=== PATIENT | female | born 1985 | race Caucasian/White ===

== ENCOUNTER 2018-06-06 10:48 | Outpatient (REF) | payer BC, SELFPAY ==
--- NOTE | 2018-06-06 10:30 | PAPFT_PTH ---
PATIENT: Jeana Thornton LOC: [facility]#:[id number] AGE/SX: 32/F ROOM: RE06/06/[address]: Sherry Victoria : 1985 BED: DIS: 06/06/2018 SPEC #: [id number] RECD: 06/06/18 13:06 STATUS: MARRY REVee #: [id number] PERRY: 06/06/18 10:[address]: Sherry Victoria DEPT: [facility] Cytology RECD BY: Jane Terrazas Tissues: 1 - CX/ENDOCX FOR PAP SMEARS Procedures: PAP THIN PREP/UVM Screening HPV DNA PROBE Comments: [id number]
== END 2018-06-06 11:08 ==
LOC: NCHCN 10:48
PROVIDERS: PCP Nurse Practitioner; Visit Provider Nurse Practitioner
DX: Z00.00 Encounter for general adult medical examination without abnormal findings (principal); Z12.4 Encounter for screening for malignant neoplasm of cervix; Z11.51 Encounter for screening for human papillomavirus (HPV)
CPT/HCPCS: 88142; 87624

== ENCOUNTER 2019-02-09 09:53 | Emergency (ER) | payer BC, SELFPAY ==
[2019-02-09 09:56] VITALS: BP 132/93; PULSE 87; RESP 14; TEMP 36.7; O2SAT 97
[2019-02-09 09:58] VITALS: RESP 14
[2019-02-09] MEDS: Meclizine 25 MG TAB PO (10:08)
--- NOTE | 2019-02-09 10:15 | W.ED.GENAD ---
Discharge Plan Disposition Patient Disposition: HOME Condition: Good Discharge Details Chief Complaint: Dizzy/Sync Clinical Impression: Vertigo Primary Care Provider: Sherry Victoria ED Provider: Jhonny Morgan Home Meds and New Rx's Prescriptions: New meclizine 25 mg tablet 25 mg PO TID Qty: 30 RF: 0 No Action ParaGard T 380A 1 EACH intrauterine device 1 ea Intrauterine ONCE Qty: 1 RF: 0 Discharge Instructions Instructions: Vertigo (ED) Additional Instructions: You have what I suspect to be vertigo causing her dizziness. Please decrease your caffeine and salt intake. Please drink 10 to 12 cups of water per day. Please take the meclizine as directed for treatment of your symptoms. If you notice any worsening of your symptoms, or any new symptoms such as vomiting, diarrhea, fever, chills, shortness of breath, chest pain, numbness, weakness, or fainting , please return immediately to the emergency department for reevaluation. Please follow up with your primary care provider as soon as possible for reassessment and reevaluation. As always, it was a pleasure participating in your medical care today. Stand Alone Forms: Work Release Referrals: Sherry Victoria [Primary Care Provider] - Medical Decision Making This is a very pleasant 33-year-old female who presents with symptoms of dizziness. It started this morning when she turned over and stood up she got up in the morning. She denies having any fall, she did not hit her head, she denies any other complaints. Nausea is present but no vomiting. Exam demonstrates no neurologic deficits. Mild left-sided horizontal nystagmus with a fatiguing beat. No vertical or rotatory nystagmus. Hints exam showed no evidence of cerebellar component. Signs and symptoms at this time appear clinically consistent with peripheral vertigo. No concerning exam red flags that are clinically consistent with central cerebellar event, or stroke. Patient will be started on meclizine, recommended that she decrease her caffeine and salt intake, and follow closely. Clinically she does look well and is able to ambulate without difficulty. I have extensively reviewed the treatment plan and discharge instructions with the patient. I have addressed all patient concerns at this time. The patient was made aware of what symptoms to monitor for that would warrant a return to the emergency department. Discussed the plan with the patient, they demonstrate verbal understanding and agreement with our assessment and plan at this time. HPI General Date/Time Provider Initiated Documentation: 02/09/19 09:55. HPI Narrative: This is a 33-year-old female with no significant past medical history except for a copper intrauterine device who presents today for evaluation of dizziness. The patient states that this morning she woke up in the morning, turned and stood up, and then felt notably dizzy. She had a room spinning sensation. She then went laid on the floor. She did not fall or hit her head. She laid on the floor for an hour to as the symptoms slowly resolved. She admits to nausea but no vomiting. She denies any severe headache, chest pain, shortness of breath, numbness tingling or weakness. She denies any tinnitus, or other vision changes. She denies any history of stroke. She has no other complaints at this time. No other modifying factors. Related Data Home Medications Medication Instructions Recorded Confirmed copper [Paragard T 380-A] 1 ea INTRAUTERINE ONCE #1 implant 09/17/16 02/09/19 meclizine 25 mg PO TID #30 tab 02/09/19 Previous Rx's Medication Instructions Recorded meclizine 25 mg PO TID #30 tab 02/09/19 Allergies Allergy/AdvReac Type Severity Reaction Status Date / Time No Known Allergies Allergy Unverified 02/09/19 10:00 General Stated Complaint: Dizzy/Sync NOHEMY: 3 Review of Systems Review of Systems All systems reviewed & are unremarkable except as noted in HPI and below PFSH Medical History Contraceptive management Ovarian cyst in Surgical History section (09/14/14) Family History Mother Essential hypertension Hyperlipidemia Mental disorder Father Hyperlipidemia Sister Alcohol abuse Essential hypertension Mental disorder Brother Substance abuse Social History Smoking/Tobacco Use Status: Former Tobacco Use Alcohol Intake: never Drug use: Never Substance use type: does not use Do you feel safe at home: Yes Do you feel safe in your relationship?: Yes Exam Narrative Exam Narrative: 1.Const: Well-nourished, Well-developed, appearing stated age 2.Eyes: PERRL, no conjunctival injection, and symmetrical lids. Cerebellar function testing is normal. The patient demonstrates a normal hints exam with no findings concerning for a central event. No vertical nystagmus. She does have notable left-sided horizontal nystagmus. The head impulse test is negative for any significant central abnormality. Normal test of skew with a subtle horizontal correction but no vertical correction. No suggestion of a central cerebellar event. 3.ENT: Atraumatic external nose and ears. Moist MM. Neck: Symmetric, trachea midline, No thyromegaly. 4.CVS: +S1/S2, No murmurs or gallops. Peripheral pulses 2+ and equal in all extremities. Brisk capillary refill in all extremities. 5.RESP: Unlabored respiratory effort. Clear to auscultation bilaterally. No wheezes rales or rhonchi 6.GI: Soft, Nontender/Nondistended, No hepatosplenomegaly. No guarding or rebound. 7.MSK: Normocephalic/Atraumatic, Extremities w/o deformity or ttp No cyanosis or clubbing, Normal movement of all extremities 8.Skin: Warm, Dry. No rashes or lesions. 9.Neuro: soft work wrapper examiner II-XII grossly intact. Sensation grossly intact, no focal neurologic deficits. All 6 cardinal planes of vision are fully intact. The patient demonstrated a normal ijiqai-pnnk-fcmcdx, good dexterity. There was no evidence of dysdiadochokinesia. Patient was able to ambulate without difficulty. There was no wide-based gait. Romberg, and prij-pl-sqsx are both normal on testing. Sensation was intact bilaterally as well as muscle strength bilaterally for all extremities. Patient was able to verbalize butter cup with no slurring, or miss pronunciation. 10.Psych: (AAO) x3. Appropriate mood and affect Course Vital Signs Temperature 36.7 C 02/09/19 09:56 Pulse 87 02/09/19 09:56 Respiratory Rate 14 02/09/19 09:56 Blood Pressure 132/93 H 02/09/19 09:56 Pulse Oximetry 97 02/09/19 09:56 Temperature 36.7 C 02/09/19 09:56 Pulse 87 02/09/19 09:56 Respiratory Rate 14 02/09/19 09:58 Respiratory Effort Non-Labored 02/09/19 09:58 Respiratory Depth Normal 02/09/19 09:58 Respiratory Pattern Normal 02/09/19 09:58 Blood Pressure 132/93 H 02/09/19 09:56 Blood Pressure Position Sitting 02/09/19 09:56 Pulse Oximetry 97 02/09/19 09:56 Oxygen Delivery Method Room Air 02/09/19 09:56 Oxygen Flow Rate 0 02/09/19 09:56 Pain Level 0 02/09/19 09:56
== END 2019-02-09 10:22 | disposition home or self-care (01) ==
PROVIDERS: Emergency Provider Student in an Organized Health Care Education/Training Program; PCP Nurse Practitioner
DX: R42 Dizziness and giddiness (principal)
CPT/HCPCS: 99283

== ENCOUNTER 2019-05-19 08:02 | Outpatient (CLI) | payer BC, SELFPAY ==
--- NOTE | 2019-05-19 08:00 | DI.US_ITS ---
EXAM: US PELVIS TRANSVAGINAL CLINICAL HISTORY: UNABLE TO REMOVE IUD, FEELS STUCK,NORMAL STRING LENGTH. TECHNIQUE: Ultrasound performed using standard protocol. COMPARISON: No exams were available for comparison FINDINGS: Pelvic ultrasound was performed transabdominally and transvaginally. Please see the accompanying fidel a sheet for measurements of pelvic structures. There is an IUD which lies in the cervix and cannot b e confirmed to lie in the endometrial cavity. Uterus is otherwise unremarkable in appearance. There is an apparent involuting follicle of the left ovary measuring about 13 millimeters in diameter . Otherwise the ovaries have an unremarkable follicular appearance. There is a small quantity of fu ndal free fluid in the pelvis. Limited scanning of the kidneys is unremarkable. IMPRESSION: Findings suggesting malposition of IUD which lies in the cervical region and is eccentrically oriente d and possibly imbedded in myometrium rather than in the endometrial cavity.
== END 2019-05-19 08:22 ==
PROVIDERS: PCP Nurse Practitioner; Visit Provider Nurse Practitioner Women's Health
DX: T83.32XA Displacement of intrauterine contraceptive device, initial encounter (principal); N83.02 Follicular cyst of left ovary
CPT/HCPCS: 76830; 76856

== ENCOUNTER 2019-06-12 14:37 | Outpatient (CLI) | payer BC, SELFPAY ==
[2019-06-12 15:16] LABS: HCT 41.3 % (36.0-46.0); Mean Corp. HGB Concentration 33.9 g/dL (32.0-36.0); Mean Corpuscular Hemoglobin 31.6 pg (27.0-33.0); Mean Corpuscular Volume 93.2 fL (80-95); Mean Platelet Volume 8.6 fL (8.0-11.0); Platelet Count 288 x1000/uL (130-400); RBC 4.43 m/cumm (4.00-5.20); RBC Distribution Width 12.4 % (11.7-14.6); White Blood Cell Count 8.64 k/cumm (4.4-10.8)
[2019-06-12 15:44] LABS: HCG Qual (Serum) Negative
== END 2019-06-12 14:57 ==
PROVIDERS: PCP Nurse Practitioner; Visit Provider Obstetrics & Gynecology Gynecology
DX: T83.39XA Other mechanical complication of intrauterine contraceptive device, initial encounter (principal); N83.02 Follicular cyst of left ovary; Z01.812 Encounter for preprocedural laboratory examination; Z01.818 Encounter for other preprocedural examination
CPT/HCPCS: 36415; 85027; 84703

== ENCOUNTER 2019-06-14 12:54 | Inpatient (IN) | payer BC, SELFPAY ==
[2019-06-14] VITALS (30 sets, daily range): BP systolic 103–158; BP diastolic 61–97; PULSE 76–113; RESP 11–23; TEMP 36.2–36.8; O2SAT 94–100
[2019-06-14] MEDS: Lactated Ringers 1,000 ML 125 ML IV ×4 (07:50→23:00)
--- NOTE | 2019-06-14 09:20 | CER_PTH ---
PATIENT: Jeana Thornton LOC: [facility] U#:[id number] AGE/SX: 34/F ROOM: OBS.305 RE06/14/[address]: Jennifer Dexter : 1985 BED: A DIS: 06/16/2019 SPEC #: [id number] RECD: 06/14/19 18:10 STATUS: MARRY REQ #: [id number] PERRY: 06/14/19 09:[address]: Jennifer Dexter DEPT: Surgical Specimen RECD BY: Jane Terrazas ENTERED: 06/14/19 18:11 SP TYPE: CER OTHR DR: Sherry Victoria Tissues: 1 - CERVICAL BIOPSY Procedures: GROSS AND MICRO LEVEL 4 Comments: [id number]
[2019-06-14] MEDS: Lidocaine 1% Multi-Dose 50 ML VIAL (09:42)
--- NOTE | 2019-06-14 10:59 | ROE_ITS ---
Date of service: 06/14/19 Time of Service: 10:59 Operative Note Operative Note DATE OF PROCEDURE: 06/14/19 PRE-OP DIAGNOSIS: Retained IUD POST-OP DIAGNOSIS: same PROCEDURE: Hysteroscopic retrieval of IUD arms SURGEON: Jennifer Dexter ANESTHESIA: MAC ESTIMATED BLOOD LOSS: 0 PATHOLOGY: other (Biopsy of tissue at the uterine fundus) COMPLICATIONS: Other (Suspected uterine perforation noted after successful IUD retrieval) Patient was transported to: PACU Patient's condition: stable Indications: 34-year-old G2, P2 female who desired IUD removal. An attempt at an outside facility was unsuccessful the strings are grasped but they were unable to remove the IUD despite gentle traction. A pelvic ultrasound was then performed that showed the IUD in the lower uterine segment in a misaligned position. Normal adnexa some free fluid at the uterine fundus but otherwise unremarkable imaging. [facility] resulted in the body of the IUD being delivered along with the strings but the IUD arms were not retrievable. Decision was made to proceed with a hysteroscopic retrieval. Findings: The IUD arms were in a the lower uterine segment at the internal office fully extended and occluding the endocervical canal. There inspection of the uterine cavity after the successful retrieval of the IUD showed a 1 to 2 mm area at the uterine fundus yellow-tinged without evidence of active bleeding. It initially appeared to be a polypoid structure. Using the hysteroscope a biopsy was obtained through the endoscopic graspers and a 1 mm sample of tissue was successfully retrieved a second attempt at retrieval was also successful. It was after the reinsertion of the hysteroscope into the uterine cavity that there was poor visualization of the fundus with an increase in the material that had initially prompted the biopsy. My concern was that there would have been a perforation of the uterus.the team was informed and the procedure was completed with the patient transfered the PACU. Procedure Description: Patient was taken the operating room she placed in the dorsal supine position and monitored anesthesia care was administered without difficulty. She was then placed in the dorsal lithotomy position in yellowfin stirrups with SCDs in place. She was prepped and draped in the usual fashion. No antibiotics were required. A bivalve speculum was placed in the vagina and the anterior lip of the cervix was infiltrated with 1 cc of 1% lidocaine without epinephrine. The cervix was then grasped with a single-tooth tenaculum and a paracervical block was performed using 5 cc of 1% lidocaine at the 4 and 8:00 paracervical junction respectively. The cervix was then dilated to a maximum of 19 Napier. A hysteroscope was then inserted under direct visualization into the cervix with normal saline as a distention medium. The IUD arms were located at the internal office. A endoscopic grasper was introduced and the IUD arms were successfully retrieved intact. The hysteroscope was then reinserted with normal saline for distention medium with the above-noted findings. After the final inspection of the uterus and the concern regarding uterine perforation the instruments removed from the patient's vagina tenaculum site was noted to be hemostatic she was placed in a dorsal supine position awakened anesthesia transferred recovery in stable condition. All sponge lap needle counts are correct x2.
[2019-06-14] MEDS: Bupivacaine 0.25% Pres-Free 30 ML VIAL (11:42)
[2019-06-14] MEDS: ceFAZolin 1,000 MG VIAL 1000 MG (12:29)
[2019-06-14] MEDS: HYDROmorphone 2 MG/ML VIAL IVP ×2 (13:39→13:56)
--- NOTE | 2019-06-14 15:47 | ROE_ITS ---
Operative Note Operative Note DATE OF PROCEDURE: 06/14/19 PRE-OP DIAGNOSIS: Perforation of uterus at time of laparoscopy POST-OP DIAGNOSIS: same PROCEDURE: Laparotomy via Pfannenstiel skin incision inspection of the small intestine and repair of the uterine serosa SURGEON: Jennifer Dexter HEAD OF CYTOGENETICS: Jose Ojeda HEAD OF CYTOGENETICS: Winifred Dowell ANESTHESIA: GETA and local (Nerve block by Aries Gillis CRNA) ESTIMATED BLOOD LOSS: 20 PATHOLOGY: none sent COMPLICATIONS: None (Uterine perforation - anterior uterine wall during procedure) Patient was transported to: PACU Patient's condition: stable Indications: Patient is a 34-year-old G2, P2 female who earlier in the day underwent a hysteroscopic retrieval of misplaced IUD arms in the lower uterine segment. The device was successfully retrieved with subsequent inspection of the uterine cavity was concerning for a uterine perforation. The procedure was completed the patient was counseled after she awoke in the recovery area regarding the need for additional procedure and she was consented for a operative laparoscopy. Findings: Upon entry into the abdomen copious fluid was encountered and suction aspirated there was a single 1 cm serosal defect on the lower uterine segment anterior portion of the uterus the bowel was carefully inspected and was noted to be intact. Methylene blue was instilled into the urinary bladder in retrograde fashion and there was no evidence of damage to the bladder. Procedure Description: Patient was taken to the operating room and placed in the dorsal supine position where general endotracheal anesthesia was induced with Dr. without difficulty she then underwent a nerve block performed by anesthesia. The vagina was prepped Kerr catheter was inserted to gravity drainage and a HSG cannula was instilled into the uterine cavity balloon inflated. The abdomen was reprepped and draped in sterile fashion Ancef was administered SCDs were in place. A skin incision was made using a scalpel along the previous Pfannenstiel skin incision and the underlying subcutaneous tissue was dissected using Bovie electrocautery and scalpel. Upon encountering the rectus fascia the rectus fascia was nicked the fascial incision was extended using Bovie electrocautery in a transverse fashion and the rectus fascia was dissected off of the overlying rectus muscles using Bovie electrocautery on the inferior and superior aspects of the incision. The peritoneum was entered and the above-stated fluid was encountered and suction aspirated. We were then able to extend the peritoneal incision to allow placement of a self-retaining flexible abdominal retractor. The uterine perforation site was not actively bleeding. The small bowel was carefully inspected and noted to be intact. The serosal surface of the uterus was reapproximated with 2 interrupted sutures of 3-0 Vicryl methylene blue was instilled in a retrograde fashion into the bladder with no spillage of methylene blue noted. The pelvis was copiously irrigated with sterile normal saline which was aspirated. All sites of repair and entry were noted to be hemostatic. The peritoneum was reapproximated with a running suture of 2-0 Vicryl rectus fascia was reapproximated with a running suture of 0 Vicryl. Subtenons tissue was closed with 2-0 Vicryl and the skin was closed with subcuticular closure of 4-0 Monocryl. The skin was sealed with skin glue. The patient was awakened extubated and transported recovery room in stable [facility]. All sponge lap needle counts correct x2.
[2019-06-14] MEDS: Ketorolac 30 MG/ML VIAL IVP ×2 (16:01→21:33)
[2019-06-15] VITALS (7 sets, daily range): BP systolic 114–136; BP diastolic 69–91; PULSE 92–119; RESP 16–20; TEMP 36.4–36.8; O2SAT 95–99
[2019-06-15] MEDS: oxyCODONE 5 mg/Acetaminophen 325 mg TAB PO ×3 (01:45→17:23)
[2019-06-15] MEDS: Ketorolac 30 MG/ML VIAL IVP ×2 (04:04→10:16)
[2019-06-15] MEDS: Lactated Ringers 1,000 ML 125 ML IV (06:46)
--- NOTE | 2019-06-15 07:14 | W.PM.PROGNOT ---
Date of Service Date of service: 06/15/19 Time of Service: 07:15 Assessment and Plan Assessment and plan (1) Status post laparotomy: Status: Acute Assessment and plan: Postop day 1 after hysteroscopic removal of ParaGard IUD arms from the lower uterine segment. There was a tear of the uterine wall noted at the time of the hysteroscopy from where the right IUD arm had been embedded. Patient subsequently underwent a exploratory laparotomy for inspection of the bowel which was undamaged and repair of hysterotomy on the anterior portion of the uterus. Her postop course has been uncomfortable she is been afebrile her only issue is back pain from lying in the bed. She is reluctant to use narcotics because of previous side effects when taking Percocet. However she was able to take Percocet last night and tolerated. The plan today is to remove her Kerr catheter and assist with ambulation. Plan is to discharge her to home tomorrow. She will evaluate today her need for any narcotics in addition to her NSAIDs. (2) IUD mechanical complication: Status: Acute Qualifiers: Mechanical complication type: mechanical breakdown Encounter type: initial encounter Qualified Code(s): T83.31XA - Breakdown (mechanical) of intrauterine contraceptive device, initial encounter Subjective Subjective Patient reports: still having pain (Patient agreed to take Percocet last night. She tolerated the medication without nausea), tolerating a regular diet, flatus, no bowel movement and afebrile Interval history since last seen: Her main complaint is low back pain from pressing on the bed. She was given a K pad overnight. Her abdominal discomfort is localized to the right side. She would like to ambulate today. I reviewed the events of the surgery with the patient the plan is to discharge her to home on 06/16/2019. She is reluctant to use any narcotics at home so because of the GI side effects. Plan is to have her use ibuprofen at home and assess her need for narcotics at the time of discharge on 06/16/2019. Exam Const General: no acute distress Nutritional Appearance: average body habitus Orientation: alert, awake and oriented x3 Resp Effort & Inspection: normal respiratory effort Auscultation: clear to auscultation bilaterally Cardio Rate: regular rate Rhythm: regular rhythm GI Inspection: incision (Clean dry and intact. Skin glue in place. Beginning ecchymosis R lateral ) Palpation: soft and no hepatosplenomegaly (No guarding rebound or masses) Auscultation: normal bowel sounds Skin General skin exam: no rashes or lesions noted Extrem General: normal to inspection, full ROM and normal capillary refill (SCDs remain in place) Objective Objective Clinical Data: Vital Signs Temperature 98.2 F 06/15/19 04:12 Temperature Source Oral 06/15/19 04:12 Pulse 101 H 06/15/19 04:12 Pulse Rhythm Regular 06/15/19 00:30 Respiratory Rate 18 06/15/19 04:12 Respiratory Effort Non-Labored 06/15/19 00:30 Respiratory Depth Normal 06/15/19 00:30 Respiratory Pattern Normal 06/15/19 00:30 Blood Pressure 114/69 06/15/19 04:12 Pulse Oximetry 95 06/15/19 04:12 Respiratory End-tidal CO2 32 06/14/19 14:10 Oxygen Delivery Method Room Air 06/15/19 04:12 Oxygen Flow Rate 0 06/15/19 04:12 Pain Level 1 06/15/19 04:12 Comment 06/14/19 14:15 Intake & Output 06/14/19 06/14/19 06/15/19 11:59 23:59 11:59 Intake Total 1000 / 2500.001 1500.001 / 2500.001 970.833 / 970.833 Output Total 1000 / 1000 750 / 750 Balance 1000 / 1500.001 500.001 / 1500.001 220.833 / 220.833 Weight 161 lb 6.054 oz Intake: IV 1000 / 2500.001 1500.001 / 2500.001 970.833 / 970.833 Output: Urine 1000 / 1000 750 / 750 Other: Urine Color Green Pale Yellow Urine Appearance Clear Clear Comment urine in bag green from methylene blue. Emesis Description None None
[2019-06-15 07:15] LABS: HCT 37.2 % (36.0-46.0); HGB 12.6 g/dL (12.0-15.5); Mean Corp. HGB Concentration 33.9 g/dL (32.0-36.0); Mean Corpuscular Hemoglobin 31.3 pg (27.0-33.0); Mean Corpuscular Volume 92.3 fL (80-95); Mean Platelet Volume 8.7 fL (8.0-11.0); Platelet Count 281 x1000/uL (130-400); RBC 4.03 m/cumm (4.00-5.20); RBC Distribution Width 12.2 % (11.7-14.6); White Blood Cell Count 12.63 k/cumm (4.4-10.8)
--- NOTE | 2019-06-15 07:25 | W.PM.DS.N ---
Date of service: 06/15/19 Time of Service: 07:25 DS: Diagnosis Discharge Diagnosis (1) Status post laparotomy: Status: Acute (2) IUD mechanical complication: Status: Acute Discharge Plan Disposition Patient Disposition: HOME Condition: Fair Discharge Details Reason For Visit: Uterine performation Admit Date/Time: 06/14/19 12:54 Admit Provider: Jennifer Dexter Attending Provider: Jennifer Dexter Primary Care Provider: Sherry Victoria Hospital Course Hospital Course: Patient was admitted the morning of surgery and underwent a hysteroscopic retrieval of a IUD arm that was embedded in the uterine sidewall along the lower uterine segment. In the process of extracting the arm from the uterine sidewall there was a 1 cm defect created in the uterine serosa which was subsequently repaired at the time of an exploratory laparotomy performed the same day. Both bladder and bowel were carefully inspected and were intact. Postop day 1 Kerr catheter removed patient is reluctant to use narcotics secondary to previous GI intolerance. She will have NSAIDs at the time of discharge and discuss on 06/16/2019 whether narcotics will be appropriate. Home Meds and New Rx's Prescriptions: Continued ibuprofen 400 mg Tablet 400 mg PO Q6H RF: 0 No Action norethindrone-e.estradiol-iron 1.5 mg-30 mcg (21)/75 mg (7) tablet 1 tab PO DAILY Qty: 84 RF: 4 meclizine 25 mg tablet 25 mg PO TID PRN (Reason: dizziness) Qty: 30 RF: 0 Discharge Instructions Additional Instructions: [facility]ter [facility] 06/23/2019 at 1:00 in the afternoon. Please call to change the date or time if needed. Stand Alone Forms: DSU Post Gynecology Surgery Activity:: Activity as Tolerated Equipment/Supplies:: No Equipment Needed Diet:: As Tolerated Discharge Data Discharge Date/Time-TO BE ENTERED AT DEPARTURE: 06/16/19 10:40 DS: Summary Status at Discharge Functional status at discharge: independent ambulation Overall status at discharge: patient is back to baseline Mental Status: mental status grossly normal Speech and Movement: speech and movement normal Mood: congruent mood Affect: normal affect Exam Const General: no acute distress Nutritional Appearance: average body habitus Orientation: alert, awake and oriented x3 Resp Effort & Inspection: normal respiratory effort Auscultation: clear to auscultation bilaterally Cardio Rate: regular rate Rhythm: regular rhythm GI Inspection: normal to inspection and scar (Clean dry and intact, skin glue in place) Palpation: soft, no masses and nontender Auscultation: normal bowel sounds General: deferred Skin General skin exam: no rashes or lesions noted Extrem General: normal to inspection, full ROM and capillary refill normal Psych Appearance: grossly normal Mental Status: mental status grossly normal Speech and Movement: speech and movement normal Mood: congruent mood Affect: normal affect DS: Data Vitals/I&O Vitals and I&O: Vital Signs Temperature 98.2 F 06/15/19 04:12 Temperature Source Oral 06/15/19 04:12 Pulse 101 H 06/15/19 04:12 Pulse Rhythm Regular 06/15/19 00:30 Respiratory Rate 18 06/15/19 04:12 Respiratory Effort Non-Labored 06/15/19 00:30 Respiratory Depth Normal 06/15/19 00:30 Respiratory Pattern Normal 06/15/19 00:30 Blood Pressure 114/69 06/15/19 04:12 Pulse Oximetry 95 06/15/19 04:12 Respiratory End-tidal CO2 32 06/14/19 14:10 Oxygen Delivery Method Room Air 06/15/19 04:12 Oxygen Flow Rate 0 06/15/19 04:12 Pain Level 1 06/15/19 04:12 Comment 06/14/19 14:15 Intake & Output 06/14/19 06/14/19 06/15/19 11:59 23:59 11:59 Intake Total 1000 / 2500.001 1500.001 / 2500.001 970.833 / 970.833 Output Total 1000 / 1000 750 / 750 Balance 1000 / 1500.001 500.001 / 1500.001 220.833 / 220.833 Weight 161 lb 6.054 oz Intake: IV 1000 / 2500.001 1500.001 / 2500.001 970.833 / 970.833 Output: Urine 1000 / 1000 750 / 750 Other: Urine Color Green Pale Yellow Urine Appearance Clear Clear Comment urine in bag green from methylene blue. Emesis Description None None Data Completed and Pending Labs on day of discharge: Labs from last 24 hours 06/15/19 06:55 WBC 12.63 H RBC 4.03 Hgb 12.6 Hct 37.2 MCV 92.3 MCH 31.3 MCHC 33.9 RDW 12.2 Plt Count 281 MPV 8.7 PFSH Family History Mother Essential hypertension Hyperlipidemia Mental disorder Father Hyperlipidemia Sister Alcohol abuse Essential hypertension Mental disorder Brother Substance abuse Social History Smoking/Tobacco Use Status: Former Tobacco Use Quit Date: 08/16/08 Alcohol Intake: never Drug use: Never Substance use type: does not use Household members: spouse, children and other Details: Tatianna. Employed at [employer] Number of Children: 2 Do you feel safe at home: Yes Do you feel safe in your relationship?: Yes Female Reproductive History Menstrual control method: copper IUCD (Removed 06/14/2019.) History History 2 Para 2 Hx # Term Pregnancies 2 Multiple births Hx # Pregnancies Ectopic pregnancies AB induced Hx Number of Living Children AB spontaneous
[2019-06-15] MEDS: Docusate Sodium 100 MG CAP PO ×2 (08:19→17:00)
[2019-06-15] MEDS: Normal Saline Flush 10 ML SYR IV (10:17)
[2019-06-15] MEDS: Ibuprofen 600 MG TAB PO (16:11)
[2019-06-16] MEDS: Ibuprofen 600 MG TAB PO ×2 (00:50→06:51)
[2019-06-16] MEDS: oxyCODONE 5 mg/Acetaminophen 325 mg TAB PO (00:50)
[2019-06-16 02:00] VITALS: BP 138/89; PULSE 81; RESP 18; TEMP 36.7
[2019-06-16 07:15] VITALS: BP 125/85; PULSE 88; RESP 16; TEMP 36.6; O2SAT 98
--- NOTE | 2019-06-16 10:33 | PGE_ITS ---
Date of Service Date of service: 06/16/19 Time of Service: 10:33 Assessment and Plan Assessment and plan (1) Status post laparotomy: Status: Acute Assessment and plan: Doing well. Patient has met all postoperative milestones. She is suitable for discharge home today. (2) IUD mechanical complication: Status: Acute Qualifiers: Mechanical complication type: mechanical breakdown Encounter type: initial encounter Qualified Code(s): T83.31XA - Breakdown (mechanical) of intrauterine contraceptive device, initial encounter Subjective Subjective Interval history since last seen: Doing well this morning. Pain well controlled. No problems. Tolerating regular diet. Ambulatory. Desires disc harge home. Exam GI Other: Abdomen is soft and appropriately tender. Incision is clean dry and int act. Objective Objective Clinical Data: Vital Signs Temperature 97.9 F 06/16/19 07:15 Temperature Source Oral 06/16/19 07:15 Pulse 88 06/16/19 07:15 Pulse Rhythm Regular 06/15/19 20:50 Respiratory Rate 16 06/16/19 07:15 Respiratory Effort 06/15/19 20:50 Respiratory Depth Normal 06/15/19 20:50 Respiratory Pattern Normal 06/15/19 20:50 Blood Pressure 125/85 06/16/19 07:15 Pulse Oximetry 98 06/16/19 07:15 Respiratory End-tidal CO2 32 06/14/19 14:10 Oxygen Delivery Method Room Air 06/16/19 07:15 Oxygen Flow Rate 0 06/16/19 07:15 Pain Level 0 06/16/19 07:15 Comment 06/14/19 14:15 Intake & Output 06/15/19 06/15/19 06/16/19 11:59 23:59 11:59 Intake Total 1780.833 / 2780.833 1000.000 / 2780.833 Output Total 1250 / 2250 1000 / 2250 Balance 530.833 / 530.833 0 / 530.833 Intake: IV 980.833 / 2468.356 4375.000 / 1980.833 Oral 800 / 800 Output: Urine 1250 / 2250 1000 / 2250 Other: Urine Color Yellow Pale Urine Appearance Clear Clear Urine Odor None Comment has voided 3x Voiding Methods Toilet Toilet Laboratory Results WBC 12.63 k/cumm (4.4-10.8) H 06/15/19 06:55 RBC 4.03 m/cumm (4.00-5.20) 06/15/19 06:55 Hgb 12.6 g/dL (12.0-15.5) 06/15/19 06:55 Hct 37.2 % (36.0-46.0) 06/15/19 06:55 MCV 92.3 fL (80-95) 06/15/19 06:55 MCH 31.3 pg (27.0-33.0) 06/15/19 06:55 MCHC 33.9 g/dL (32.0-36.0) 06/15/19 06:55 RDW 12.2 % (11.7-14.6) 06/15/19 06:55 Plt Count 281 x1000/uL (130-400) 06/15/19 06:55 MPV 8.7 fL (8.0-11.0) 06/15/19 06:55
--- NOTE | 2019-06-16 10:39 | PDOC.DSDIS_ITS ---
Discharge Plan Disposition Patient Disposition: HOME Condition: Fair Discharge Details Reason For Visit: Uterine performation Admit Date/Time: 06/14/19 12:54 Admit Provider: Jennifer Dexter Attending Provider: Jennifer Dexter Primary Care Provider: Sherry Victoria Hospital Course Hospital Course: Patient was admitted the morning of surgery and underwent a hysteroscopic retrieval of a IUD arm that was embedded in the uterine sidewall along the lower uterine segment. In the process of extracting the arm from the uterine sidewall there was a 1 cm defect created in the uterine serosa which was subsequently repaired at the time of an exploratory laparotomy performed the same day. Both bladder and bowel were carefully inspected and were intact. Postop day 1 Kerr catheter removed patient is reluctant to use narcotics secondary to previous GI intolerance. She will have NSAIDs at the time of discharge and discuss on 06/16/2019 whether narcotics will be appropriate. Home Meds and New Rx's Prescriptions: New oxycodone-acetaminophen [Percocet] 5-325 mg tablet 1 tab PO Q6H PRN (Reason: pain) Qty: 30 RF: 0 Continued ibuprofen 400 mg Tablet 400 mg PO Q6H RF: 0 Discharge Instructions Additional Instructions: [facility]ter [facility] 06/23/2019 at 1:00 in the afternoon. Please call [phone] to change the date or time if needed. Stand Alone Forms: DSU Post Gynecology Surgery Activity:: Activity as Tolerated Equipment/Supplies:: No Equipment Needed Diet:: As Tolerated DS: Diagnosis Discharge Diagnosis (1) Status post laparotomy: Status: Acute (2) IUD mechanical complication: Status: Acute
== END 2019-06-16 10:40 | disposition home or self-care (01) | DRG 742 ==
LOC: OBS 06-15 07:30
PROVIDERS: Admitting Provider Obstetrics & Gynecology Gynecology; PCP Nurse Practitioner; Visit Provider Obstetrics & Gynecology Gynecology
PROC: 0UDB8ZZ Extraction of Endometrium, Via Natural or Artificial Opening Endoscopic (ICD-10-PCS; CPT 58558; principal; 2019-06-14 08:30)
PROC: 0UC98ZZ Extirpation of Matter from Uterus, Via Natural or Artificial Opening Endoscopic (ICD-10-PCS; CPT 49000; principal; 2019-06-14 11:00)
DX: T83.31XA Breakdown (mechanical) of intrauterine contraceptive device, initial encounter (principal); N99.71 Accidental puncture and laceration of a genitourinary system organ or structure during a genitourinary system procedure; G89.18 Other acute postprocedural pain
CPT/HCPCS: 58562; 49000; 36415; 76942; 85027; 88305; 99233; NC; J0690; J1100; J1885; J2250; J2405

== ENCOUNTER 2019-07-19 16:20 | Emergency (ER) | payer BC, SELFPAY ==
[2019-07-19 16:33] VITALS: BP 145/91; PULSE 85; RESP 16; TEMP 36.5; O2SAT 98
[2019-07-19 16:40] VITALS: RESP 16
--- NOTE | 2019-07-19 17:38 | ED.GENADUL_ITS ---
Discharge Plan Disposition Patient Disposition: HOME Condition: Good Discharge Details Chief Complaint: Dizzy/Sync Clinical Impression: Vertigo Primary Care Provider: Sherry Victoria ED Provider: Jayne Kwong Home Meds and New Rx's Prescriptions: New meclizine 25 mg tablet 25 mg PO TID PRN (Reason: dizziness) Qty: 30 RF: 0 Continued norethindrone-e.estradiol-iron 1.5 mg-30 mcg (21)/75 mg (7) tablet 1 tab PO DAILY Qty: 84 RF: 4 ibuprofen 400 mg Tablet 400 mg PO Q6H RF: 0 Discharge Instructions Instructions: Vertigo (ED) Additional Instructions: Encourage hydration. Please take the meclizine as prescribed if you have any recurrence of your vertigo symptoms. You are given information on the Lore maneuver, you may also use this to help stop active symptoms. Please follow-up your primary care in 1 week for reevaluation. If you develop new or worsening symptoms please seek care urgently once again. Referrals: Sherry Victoria [Primary Care Provider] - Medical Decision Making Patient is a 34-year-old female presented with chief complaint of vertigo. She is been diagnosed with vertigo historically and she had a short episode of recurrent symptoms after bending forward. Reports that the episode of true vertiginous symptoms was short-lived. Continues to feel slightly off for a short period of time but she feels improved at this point. However, she is noted to discuss further treatment in the event of recurrence. Is responded well to meclizine in the past. On exam, patient is resting comfortably. Vital signs within normal limits. She appears nontoxic. Neurologic exam is normal. Hints exam is within normal limits. This patient is asymptomatic now, no feel for medically would be appropriate as I concern that this may cause recurrence of her symptoms. However, I demonstrate him to do the Lore maneuver in the event of a recurrence and did print her off information on this. We will refill her meclizine. I did encourage hydration, patient does appear slightly dry on exam reports she has not had much water recently dissociates increased stress. However, she does report that she has had increased caffeine intake. I did discuss as well. She was given strict return precautions. Will follow primary care in 1 week for reevaluation. All of her questions and concerns were addressed and she is in agreement this plan. HPI General Mode of arrival: ambulatory . Date/Time Provider Initiated Documentation: 07/19/19 16:39 . Limitations to Documentation: no limitations . Information obtained by: patient and RN notes reviewed . HPI Narrative: Patient is a 34 year old female with c/c recurrent vertigo. Has been here with similar symptoms on 02/09/19 at which time she was diagnosed with vertigo. Patient responded well to meclizine and was discharged home. She is not had symptoms since that time. Reports that today she had a similar episode when she bent over to get something out of the bag and stood up quickly. States that she simply became quite dizzy describing the room is spinning. Reports that the symptoms began to subside fairly quickly after she stopped moving. However, she contacted her primary care who advised that she have further treatment. She is describing I believe to be the Lore maneuver for treatment options. Patient was prescribed meclizine when she was here last but does not have this any longer. She has not needed it since that time. Reports she did respond well to meclizine. Patient recently had surgical intervention to remove intrauterine retained piece of a broken IUD. Patient reports she is not been sexually active since that time. Denies any recent fevers or chills. No headaches. She does report that she has had increased stress recently which was when her vertigo presented last time. She does report that she has had diminished fluid intake recently. Related Data Home Medications Medication Instructions Recorded Confirmed ibuprofen 400 mg PO Q6H 06/14/19 07/19/19 norethindrone 1.5 mg-ethinyl 1 tab PO DAILY #84 tab 06/23/19 07/19/19 estradiol 30 mcg(21)/iron 75 mg(7) tablet meclizine 25 mg PO TID PRN #30 tab 07/19/19 Previous Rx's Medication Instructions Recorded norethindrone 1.5 mg-ethinyl 1 tab PO DAILY #84 tab 06/23/19 estradiol 30 mcg(21)/iron 75 mg(7) tablet meclizine 25 mg PO TID PRN #30 tab 07/19/19 Allergies Allergy/AdvReac Type Severity Reaction Status Date / Time No Known Allergies Allergy Unverified 07/19/19 16:36 General Stated Complaint: Dizzy/Sync NOHEMY: 3 Review of Systems Constitutional Constitutional: Reports as per HPI, Denies chills, Denies fatigue, Denies fever(s), Denies frequent falls, Denies headache(s), Denies snoring and Denies weakness Eyes Eyes: Reports as per HPI, Denies blurry vision, Denies change in vision and Reports photophobia ENT Ears, Nose, Mouth, and Throat: Reports vertigo, Denies headache(s) and Denies neck pain Cardiovascular Cardiovascular: Reports as per HPI, Denies chest pain, Denies lightheadedness, Denies radiating jaw, neck or arm pain, Denies dyspnea and Denies dyspnea on exertion Respiratory Respiratory: Reports as per HPI, Denies chest congestion, Denies cough, Denies dyspnea, Denies dyspnea on exertion, Denies snoring, Denies stridor and Denies wheezing Gastrointestinal Gastrointestinal: Reports as per HPI, Denies abdominal pain, Denies change in bowel habits, Denies nausea and Denies vomiting Musculoskeletal Musculoskeletal: Reports as per HPI, Denies back pain, Denies myalgias, Denies muscle cramps, Denies neck pain and Denies numbness Integumentary/Breasts Skin/Breast: Reports as per HPI and Denies rash Neurologic Neurologic: Reports as per HPI, Denies abnormal movements, Denies abnormal speech, Denies behavioral changes, Denies confusion, Reports vertigo, Denies frequent falls, Denies headache(s), Denies focal weakness, Denies numbness, Denies sensory deficit and Denies weakness Psychiatric Psychiatric: Denies behavioral changes and Denies confusion Endocrine Endocrine: Denies fatigue Allergic/Immunologic Allergic/Immunologic: Denies wheezing [facility] History Contraceptive management Mirena IUD in past. Had monthly cyclic pain. Removed and pain subsided. Used NFP until she became . 06/14/2019 ParaGard retrieved after stem will cough during removal. 06/23/2019 patient desires OCPs while reviewing plans for Nexplanon. IUD mechanical complication (Acute) ParaGard inserted. ParaGard arms retained after stem of device delivered. 06/14/2019 ParaGard arms removed with hysteroscopic guidance. Ovarian cyst in undiagnosed endometrioma of L ovary noted at time of PCD 09/14/14. Ovarian cystectomy performed. Nl R ovary Uterine perforation by intrauterine contraceptive device (Acute) Surgical History section (09/14/14) PC/S for arrest of dilation/descent at 7cm. M. Molina. 6lb 2 oz. L ovarian cystectomy for suspected endometrioma. 07/16/16 Elective RC/Dain Gonzalez. aoc Status post laparotomy (Acute) 06/14/2019. After preparation of uterus with hysteroscopic removal of retained IUD arms. Hysterotomy repaired. Family History Mother Essential hypertension Hyperlipidemia Mental disorder Father Hyperlipidemia Sister Alcohol abuse Essential hypertension Mental disorder Brother Substance abuse Social History Smoking/Tobacco Use Status: Former Tobacco Use Quit Date: 08/16/08 Alcohol Intake: never Drug use: Never Substance use type: does not use Household members: spouse, children and other Details: H-Tristen. Employed at [employer] Number of Children: 2 Do you feel safe at home: Yes Do you feel safe in your relationship?: Yes Female Reproductive History Menstrual control method: copper IUCD (Removed 06/14/2019.) History History 2 Para 2 Hx # Term Pregnancies 2 Multiple births Hx # Pregnancies Ectopic pregnancies AB induced Hx Number of Living Children AB spontaneous Exam Const General: cooperative, healthy appearing, uncomfortable, no acute distress, well developed and well groomed Nutritional Appearance: average body habitus and well nourished Orientation: alert, awake and oriented x3 HENMT Head: normal to inspection, no palpable skull fracture, normocephalic and atraumatic Ears: hearing grossly normal bilaterally, external ears normal and TM's normal bilaterally General nose exam: external nose normal Mouth: oral mucosae normal and moist mucous membranes Throat: posterior oropharynx normal Eyes General: appearance normal, both eyes and all related structures Alignment and Position: alignment normal Periorbital: periorbital findings normal Eyelids: eyelids normal Sclera: sclerae normal Cornea: corneas normal Pupils: PERRL EOM: EOM intact bilaterally Neck Neck: normal visual inspection, full ROM, no lymphadenopathy and no meningeal signs Resp Effort & Inspection: normal respiratory effort, able to speak in complete sentences and no respiratory distress Auscultation: clear to auscultation bilaterally, no rales, no rhonchi and no wheezes Cardio Rate: regular rate Rhythm: regular rhythm Heart Sounds: S1 normal and S2 normal Back/Spine/Pelvis Cervical Spine: normal cervical lordosis and cervical ROM normal Skin General skin exam: no rashes or lesions noted Neuro General: alert, awake and oriented x3 Cranial Nerves: CN's II-XI intact bilaterally Cognition: normal cognition Speech: speech normal Gait: normal gait Motor: muscle tone normal throughout, strength 5/5 throughout, no pronator drift, no movement abnormalities noted and no fasciculations Sensory Exam: no sensory deficits noted Coordination: [id number] test normal and [id number] test normal Extrem General: normal to inspection, normal capillary refill, no pedal edema and no calf tenderness Psych Appearance: grossly normal and well kempt Mental Status: mental status grossly normal Speech and Movement: speech and movement normal Course Vital Signs Vital signs: Vital Signs Temperature 36.5 C 07/19/19 16:33 Pulse 85 07/19/19 16:33 Respiratory Rate 16 07/19/19 16:33 Blood Pressure 145/91 H 07/19/19 16:33 Pulse Oximetry 98 07/19/19 16:33 Temperature 36.5 C 07/19/19 16:33 Temperature Source Skin 07/19/19 16:33 Pulse 85 07/19/19 16:33 Respiratory Rate 16 07/19/19 16:40 Respiratory Effort Short of Breath 07/19/19 16:40 Respiratory Depth Normal 07/19/19 16:40 Respiratory Pattern Normal 07/19/19 16:40 Blood Pressure 145/91 H 07/19/19 16:33 Blood Pressure Position Sitting 07/19/19 16:33 Pulse Oximetry 98 07/19/19 16:33 Oxygen Delivery Method Room Air 07/19/19 16:33 Oxygen Flow Rate 0 07/19/19 16:33 Pain Level 3 07/19/19 16:33
[2019-07-19] MEDS: Meclizine 25 MG TAB PO (17:42)
[2019-07-19 18:59] VITALS: BP 145/91; PULSE 85; RESP 16; TEMP 36.5; O2SAT 98
== END 2019-07-19 18:25 | disposition home or self-care (01) ==
PROVIDERS: Emergency Provider Physician Assistant; PCP Nurse Practitioner
DX: R42 Dizziness and giddiness (principal)
CPT/HCPCS: 99283

== ENCOUNTER 2020-02-01 15:25 | Outpatient (REF) | payer BC, SELFPAY ==
[2020-02-03 18:44] LABS: COVID-19 RT-PCR UVMMC Result Negative (Negative)
== END 2020-02-01 15:45 ==
LOC: NCHCN 15:25
PROVIDERS: PCP Nurse Practitioner; Visit Provider Nurse Practitioner Family
DX: J06.9 Acute upper respiratory infection, unspecified (principal)
CPT/HCPCS: U0003

== ENCOUNTER 2022-08-12 02:21 | Outpatient (CLI) | payer BC, SELFPAY ==
[2022-08-12 15:57] LABS: Panorama Kit Sent via Fed Ex
[2022-08-12 16:05] LABS: Abs Immature Grans 0.03 10^3/uL (0.0-0.06); Absolute Basophil Count 0.04 10^3/uL (0.0-0.2); Absolute Eosinophil Count 0.19 10^3/uL (0.0-0.7); Absolute Lymphocyte Count 2.07 10^3/uL (1.2-3.4); Absolute Monocyte Count 0.39 10^3/uL (0.1-0.8); Basophils % 0.4; Eosinophils % 1.7; HCT 39.3 % (36.0-46.0); HGB 13.6 g/dL (11.2-15.7); Immature Grans % 0.3; MCH 32.2 pg (27.0-33.0); MCHC 34.6 % (32.0-36.0); MCV 93 fL (80-95); MPV 8.6 fL (8.0-11.0); Monocytes % 3.6; Platelet Count 256 10^3/uL (130-400); RBC 4.22 10^6/uL (3.93-5.22); RDW-SD 41.4 fL; WBC 10.92 10^3/uL (4.4-10.8)
[2022-08-12 16:06] LABS: Absolute Neutrophil Count 8.19 10^3/uL (1.2-6.7)
[2022-08-12 16:54] LABS: ALT 16 U/L (14-59); AST 16 U/L (15-37); Alkaline Phosphatase 80 U/L (46-116); Anion Gap 10.4 mmol/L (3-11); BUN 10 mg/dL (7-18); Bilirubin, Total 0.3 mg/dL (0.2-1.0); CO2 26.6 mmol/L (21.0-32.0); CREATININE 0.8 mg/dL (0.55-1.02); Calcium 9.2 mg/dL (8.5-10.1); Chloride 100 mmol/L (98-107); Estimated GFR 98.48 (mL/min/1.73m2); Glucose 121 mg/dL (74-106); Potassium 3.4 mmol/L (3.5-5.1); Sodium 137 mmol/L (136-145); Total Protein 7.8 g/dL (6.4-8.2)
[2022-08-14 09:39] LABS: HIV-1/2 Ag & Ab Screen Negative (Negative)
[2022-08-14 10:15] LABS: Hepatitis C Ab w Rflx HCV PCR Negative (Negative)
[2022-08-14 10:35] LABS: Hepatitis B Surface Ag Negative (Negative)
[2022-08-14 11:02] LABS: Varicella IgG Antibody Positive (See Note)
[2022-08-14 11:05] LABS: Rubella IgG Ab (UVM) Positive (See Note)
[2022-08-14 19:42] LABS: Syphilis IgG w/Reflex Nonreactive (Nonreactive)
[2022-08-18 14:06] LABS: Specimen WB Whole Blood
[2022-09-07 15:03] LABS: Result Summary NEGATIVE; Specimen WB Whole Blood
== END 2022-08-12 02:22 | disposition home or self-care (01) ==
LOC: LBO 02:21
PROVIDERS: PCP Nurse Practitioner; Visit Provider Advanced Practice Midwife
DX: O09.521 Supervision of elderly multigravida, first trimester (principal); O99.341 Other mental disorders complicating pregnancy, first trimester; F41.8 Other specified anxiety disorders; O34.211 Maternal care for low transverse scar from previous cesarean delivery; Z3A.11 11 weeks gestation of pregnancy
CPT/HCPCS: 36415; 80053; 81220; 81222; 81329; 86787; 86803; 86850; 86900; 86901; 87340; 87389; 84443; 85025; 86762; 86780

== ENCOUNTER 2022-08-12 15:38 | Outpatient (REF) | payer BC, SELFPAY ==
--- NOTE | 2022-08-12 14:30 | PAPFT_PTH ---
PATIENT: Jeana Thornton LOC: [facility] U#:[id number] AGE/SX: 37/F ROOM: RE08/12/[address]: Shanti Cook : 1985 BED: DIS: 08/12/2022 SPEC #: [id number] RECD: 08/13/22 12:16 STATUS: MARRY REVee #: [id number] PERRY: 08/12/22 14:[address]: Shanti Cook DEPT: [facility] Cytology RECD BY: Kellee Thomas ENTERED: 08/13/22 12:16 SP TYPE: PAPFT OTHR DR: Sherry Victoria Tissues: 1 - CX/ENDOCX FOR PAP SMEARS Procedures: PAP THIN PREP/UVM Screening HPV DNA PROBE Comments: [id number]
[2022-08-12 17:05] LABS: *AMPHETAMINES SCREEN URINE Negative (Negative); *BARBITURATES SCREEN URINE Negative (Negative); *BENZODIAZEPINES SCREEN URINE Negative (Negative); Cannabinoids THC Negative (Negative); Cocaine Screen,Urine Negative (Negative); METHADONE URINE SCREEN Negative (Negative); OPIATES URINE SCREEN Negative (Negative); Tricyclic Antidepressants Negative (Negative)
[2022-08-14 13:20] LABS: Chlamydia Result Negative (Negative); GC Result Negative (Negative)
[2022-08-18 15:38] LABS: Buprenorphine Negative ng/mL (Cutoff: 5.0); Norbuprenorphine Negative ng/mL (Cutoff: 2.5)
== END 2022-08-12 15:39 | disposition home or self-care (01) ==
LOC: LBN 15:38
PROVIDERS: PCP Nurse Practitioner; Visit Provider Advanced Practice Midwife
DX: Z34.91 Encounter for supervision of normal pregnancy, unspecified, first trimester (principal); Z3A.11 11 weeks gestation of pregnancy
CPT/HCPCS: 80307; 80348; 87491; 87591; 88142; 87086; 87624

== ENCOUNTER 2022-08-30 11:13 | Outpatient (REF) | payer BC, SELFPAY ==
[2022-08-31 11:56] LABS: PROTEIN 12.8 mg/dL (0.0-11.9)
[2022-08-31 12:00] LABS: TOTAL PROTEIN,URINE TIMED 153.6 mg/24hr (0.0-149.1); Total Volume 1200 ml
== END 2022-08-30 11:14 | disposition home or self-care (01) ==
LOC: LBN 11:13
PROVIDERS: PCP Nurse Practitioner; Visit Provider Obstetrics & Gynecology
DX: O10.012 Pre-existing essential hypertension complicating pregnancy, second trimester (principal); Z3A.14 14 weeks gestation of pregnancy
CPT/HCPCS: 81050; 84155

== ENCOUNTER 2022-08-30 21:23 | Emergency (ER) | payer BC, SELFPAY ==
[2022-08-30 21:25] VITALS: PULSE 82; RESP 16; TEMP 36.5; O2SAT 97
[2022-08-30 21:30] VITALS: BP 144/89
--- NOTE | 2022-08-30 22:21 | ED.GENADUL_ITS ---
Discharge Plan Disposition Patient Disposition: Home Condition: Stable Discharge Details Clinical Impression: Crushing injury of left ring finger, Primary Care Provider: Sherry Victoria ED Provider: Holger Carter Home Meds and New Rx's Prescriptions: Continued prenat.vits,mariah,[id number]-wugps Tablet 1 tab PO DAILY calcium carbonate [Tums] 300 mg (750 mg) tablet,chewable 300 mg PO TID PRN aspirin [Adult Aspirin Regimen] 81 mg tablet,delayed release (DR/EC) 81 mg PO DAILY Label Comments: 08/27/22- pt reports taking 81 mg alternating with 162 mg every other day. labetalol 100 mg tablet 100 mg PO BID Qty: 60 6RF Discharge Instructions Instructions: (ED) Additional Instructions: You may continue to take [id number] pain medication as needed for discomfort. Fingernail should continue to drain but if you notice any signs of infection return immediately for reassessment. If you are not improving please follow-up with primary care provider or return to the emergency department for reconsideration of x-rays. Referrals: Sherry Victoria [Primary Care Provider] - Discharge Data Discharge Date/Time-TO BE ENTERED AT DEPARTURE: 08/30/22 22:32 Medical Decision Making Patient presenting to the emergency department for chief complaint of left ring finger injury. Patient states that just prior to arrival she accidentally slammed her finger in the door. Patient denies any other injury or trauma. Was able to remove her rings. Physical exam shows significant ecchymosis and swelling to the distal aspect of the left ring finger. Exam is otherwise unremarkable with full movement sensation and cap refill intact. Patient is approximately 15 weeks and initially I did order imaging but due to her she states that she would rather forego imaging unless absolutely emergent. I did discuss with her high suspicion of distal phalanx fracture. After full discussion of healing and risk first benefit she decided that she would wait to see how the finger is healing before having radiological imaging performed. I do feel this is appropriate and do not see any findings that would suggest surgical emergent fracture or open fracture. Given significant amount of ecchymosis to the distal phalanx and underneath the nail patient was agreeable to nail trephination which did relieve some of the pressure. Finger was splinted and patient was informed of return and follow-up precautions. After discussion of diagnosis and plan of care patient has no further needs, questions, or concerns and states clear understanding to return to the emergency department for any worsening symptoms. This documentation was generated using marker.toation system, please disregard any oddities of phrase or misspellings. HPI General Mode of arrival: ambulatory . Date/Time Provider Initiated Documentation: 08/30/22 21:29 . Limitations to Documentation: no limitations . Information obtained by: patient and RN notes reviewed . History of Present Illness 37 year old F presents to the emergency department with the chief complaint of Left ring finger injury, described as moderate, with intensity rated at 7. Quality is described as aching, and is localized to the left and upper extremity. Patient reports no radiation. Patient started experiencing this hour(s) (1) and it has been constant. No relieving factors improve symptom(s), No exacerbating factors reported . Patient notes no other symptoms.. Patient did receive the following treatments prior to arrival, none Related Data Home Medications Medication Instructions Recorded Confirmed prenat.vits,mariah,[id number] 1 tab PO DAILY 07/02/22 08/27/22 calcium carbonate 300 mg (750 mg) 300 mg PO TID PRN 08/12/22 08/27/22 chewable tablet (Tums) aspirin 81 mg tablet,delayed 81 mg PO DAILY 08/27/22 08/27/22 release (Adult Aspirin Regimen) labetalol 100 mg tablet 100 mg PO BID #60 tabs 08/27/22 08/27/22 Previous Rx's Medication Instructions Recorded labetalol 100 mg tablet 100 mg PO BID #60 tabs 08/27/22 Allergies Allergy/AdvReac Type Severity Reaction Status Date / Time No Known Allergies Allergy Unverified 08/27/22 14:14 General Stated Complaint: Orthopedic NOHEMY: 4 Review of Systems Narrative: 6 systems reviewed and unremarkable except what is marked below. Musculoskeletal Musculoskeletal: Reports as per HPI, Reports deformity, Reports joint swelling and Denies limited range of motion Integumentary/Breasts Skin/Breast: Reports unusual bruising PFSH All Active Problems (Updated 08/30/22 @ 22:22 by Holger Carter NP) Anxiety (Chronic) Benign positional vertigo (Acute) Chronic sinusitis (Acute) BMI 26.0-26.9,adult (Acute) (Acute) Multigravida of advanced maternal age in first trimester (Acute) Previous section (Chronic) Fibroid uterus (Acute) Depression (Chronic) Essential hypertension (Acute) Rh negative state in antepartum period (Acute) Acute adjustment disorder with mixed anxiety and depressed mood (Acute) Crushing injury of left ring finger (Acute) Medical History (Updated 08/30/22 @ 22:22 by Holger Carter NP) Acne URI (upper respiratory infection) Uterine perforation by intrauterine contraceptive device Surgical History (Updated 08/12/22 @ 14:16 by Shanti Cook CNM) section (09/14/14) PC/S for arrest of dilation/descent at 7cm. M. Molina. 6lb 2 oz. L ovarian cystectomy for suspected endometrioma. 07/16/16 Elective RC/Dain Gonzalez. aoc Status post laparotomy 06/14/2019. After preparation of uterus with hysteroscopic removal of retained IUD arms. Hysterotomy repaired. Family History (Updated 08/12/22 @ 14:32 by Shanti Cook CNM) Mother Essential hypertension Hyperlipidemia Mental disorder Diabetes Father Essential hypertension Sister Alcohol abuse Essential hypertension Mental disorder Preeclampsia Brother Substance abuse Social History Smoking/Tobacco Use Status: Former Tobacco Use Quit Date: 08/16/08 Smoking risk assessment performed?: Yes Alcohol Intake: never Drug use: Never Substance use type: does not use Household members: spouse, children and other Details: H-Tristen. Employed at [employer] Number of Children: 2 Do you feel safe at home: Yes Do you feel safe in your relationship?: Yes Female Reproductive History Menstrual control method: copper IUCD (Removed 06/14/2019.) History History 3 Para 2 Hx # Term Pregnancies 2 Multiple births Hx # Pregnancies Ectopic pregnancies AB induced Hx Number of Living Children AB spontaneous Past Pregnancies Del. Date GA/Weeks # Preg Succ Route Wgt Sex Labor Lgth Anesth esia Location Prov Complic 09/14/14 40 No Yes 3090.098 g Male 07/20/16 39 No Yes 3033.399 g Male [place] [facility] Delivery Date: 09/14/14 Last Updated by: Shanti Cook CNM for FTP at 7 cms. [place]. Autism spectrum disorder Delivery Date: 07/20/16 Last Updated by: Shanti Cook CNM Carlos schedule . Chiari Malformation Exam Const General: cooperative, no acute distress and not ill appearing Orientation: alert, awake and oriented x3 Resp Effort & Inspection: normal respiratory effort, able to speak in complete sentences and no respiratory distress Neuro General: patient alert, patient awake, patient oriented x3, moves all extremities and no focal motor deficits Sensory Exam: no sensory deficits noted Extrem General: normal exam except as noted Left upper extremity: hand Details: normal capillary refill, tendon exam normal, tenderness Location: of the 4th digit Location: at the distal phalanx and at the nailbed, swelling Location: of the 4th digit Location: at the distal phalanx and at the nailbed and ecchymosis Location: of the 4th digit Location: at the distal phalanx and at the nailbed Course Vital Signs Vital signs: Vital Signs Temperature 36.5 C 08/30/22 21:25 Pulse 82 08/30/22 21:25 Respiratory Rate 16 08/30/22 21:25 Pulse Oximetry 97 08/30/22 21:25 Temperature 36.5 C 08/30/22 21:25 Pulse 82 08/30/22 21:25 Respiratory Rate 16 08/30/22 21:25 Respiratory Effort 08/30/22 21:28 Blood Pressure 144/89 H 08/30/22 21:30 Blood Pressure Position Sitting 08/30/22 21:25 Pulse Oximetry 97 08/30/22 21:25 Oxygen Delivery Method Room Air 08/30/22 21:25 Oxygen Flow Rate 0 08/30/22 21:25 Pain Level 7 08/30/22 21:25 Procedures Nail Trephination Time out: Yes Location (finger): left and ring Sterile prep: betadine Method of drainage: nail cautery Procedure successful: Yes Patient tolerated procedure: well
== END 2022-08-30 22:32 | disposition home or self-care (01) ==
PROVIDERS: Emergency Provider Nurse Practitioner Family; PCP Nurse Practitioner
DX: S67.195A Crushing injury of left ring finger, initial encounter (principal); W23.0XXA Caught, crushed, jammed, or pinched between moving objects, initial encounter; Z33.1 Pregnant state, incidental
CPT/HCPCS: 11740; 29130; 99283

== ENCOUNTER 2022-09-11 01:27 | Outpatient (CLI) | payer BC, SELFPAY ==
[2022-09-11 13:48] LABS: Abs Immature Grans 0.05 10^3/uL (0.0-0.06); Absolute Basophil Count 0.05 10^3/uL (0.0-0.2); Absolute Eosinophil Count 0.15 10^3/uL (0.0-0.7); Absolute Lymphocyte Count 1.94 10^3/uL (1.2-3.4); Absolute Monocyte Count 0.53 10^3/uL (0.1-0.8); Absolute Neutrophil Count 7.66 10^3/uL (1.2-6.7); Basophils % 0.5; Eosinophils % 1.4; HCT 33.3 % (36.0-46.0); HGB 11.5 g/dL (11.2-15.7); Immature Grans % 0.5; Lymphocytes % 18.7; MCH 32.6 pg (27.0-33.0); MCHC 34.5 % (32.0-36.0); MCV 94 fL (80-95); MPV 8.6 fL (8.0-11.0); Monocytes % 5.1; Neutrophils % 73.8; Platelet Count 253 10^3/uL (130-400); RBC 3.53 10^6/uL (3.93-5.22); RDW 12.4 % (11.7-14.6); RDW-SD 42.9 fL; WBC 10.38 10^3/uL (4.4-10.8)
[2022-09-11 14:23] LABS: Creatinine,Urine 141.95 mg/dL
[2022-09-11 14:32] LABS: ALT 15 U/L (14-59); AST 16 U/L (15-37); Albumin 3.2 g/dL (3.4-5.0); Alkaline Phosphatase 69 U/L (46-116); Anion Gap 8.6 mmol/L (3-11); BUN 10 mg/dL (7-18); Bilirubin, Total 0.2 mg/dL (0.2-1.0); CO2 26.4 mmol/L (21.0-32.0); CREATININE 0.7 mg/dL (0.55-1.02); Calcium 8.7 mg/dL (8.5-10.1); Chloride 103 mmol/L (98-107); Estimated GFR 115.59 (mL/min/1.73m2); Glucose 83 mg/dL (74-106); Potassium 3.1 mmol/L (3.5-5.1); Sodium 138 mmol/L (136-145); Total Protein 6.9 g/dL (6.4-8.2)
[2022-09-14 13:02] LABS: Cigarette smoking status non-Smoker; GA used in risk estimate Scan estimate; IVF Pregnancy No; Initial or repeat testing Initial testing; Insulin dependent diabetes No; Maternal Weight 158 lbs; Number of Fetuses 1; Physician Phone Number 802-748-7300; Prev Pregnancy w/NTD No; RECOMMENDED FOLLOW UP None.; Results Summary Normal risk
== END 2022-09-11 01:28 | disposition home or self-care (01) ==
LOC: LBO 01:27
PROVIDERS: Obstetrics & Gynecology; PCP Nurse Practitioner; Visit Provider Advanced Practice Midwife
DX: O09.522 Supervision of elderly multigravida, second trimester; O13.2 Gestational [pregnancy-induced] hypertension without significant proteinuria, second trimester
CPT/HCPCS: 36415; 80053; 82105; 82565; 85025

== ENCOUNTER 2022-12-07 01:21 | Outpatient (CLI) | payer BC, SELFPAY ==
[2022-12-07 16:27] LABS: HCT 33.6 % (36.0-46.0); HGB 11.1 g/dL (11.2-15.7); MCH 32.1 pg (27.0-33.0); MCV 97 fL (80-95); MPV 8.4 fL (8.0-11.0); Platelet Count 290 10^3/uL (130-400); RBC 3.46 10^6/uL (3.93-5.22); RDW-SD 42.5 fL; WBC 11.59 10^3/uL (4.4-10.8)
[2022-12-07 17:08] LABS: Glucose,1 Hr (Glucola) 89 mg/dL (80-140)
== END 2022-12-07 01:22 | disposition home or self-care (01) ==
PROVIDERS: PCP Nurse Practitioner Family; Visit Provider Obstetrics & Gynecology Gynecology
DX: O26.893 Other specified pregnancy related conditions, third trimester (principal); O36.0130 Maternal care for anti-D [Rh] antibodies, third trimester, not applicable or unspecified; O09.523 Supervision of elderly multigravida, third trimester; Z3A.28 28 weeks gestation of pregnancy
CPT/HCPCS: 36415; 82950; 85027; 86850; 90384

== ENCOUNTER 2023-01-25 07:25 | Outpatient (CLI) | payer BC, SELFPAY ==
[2023-01-25 13:28] VITALS: BP 118/78; PULSE 100; TEMP 36.8
[2023-01-25 13:32] VITALS: BP 118/78; PULSE 100
--- NOTE | 2023-01-25 14:24 | W.OBNST ---
Date of service: 01/25/23 Time of Service: 14:24 NST Evaluation Reason for NST Reasons for Nonstress Test: ADVANCED MATERNAL AGE Gestational Age Gestational Age in Weeks and Days: 35 Weeks and 3Days Test and Monitor Explained Test/Monitor Explained: Test Explained, Monitor Explained and Patient Verbalized Understanding Vital Signs Blood Pressure: 118/78 Pulse: 100 Temperature: 98.2 F NST Information Date on Monitor: 01/25/23 Time on Monitor: 13:32 Date off Monitor: 01/25/23 Time off Monitor: 14:17 Total Time on Monitor: 45 NST Interventions: PO Hydration Contraction Frequency: 0 NST Evaluation Patient States Movement: Present FHR Baseline: 140 Variability: Moderate 6-25 bpm Accelerations: 15x15 Decelerations: None NST Results: Reactive Note Ultrasound Done: N/A. NST Note Note: NST reactive after time and hydration. Pt is feeling well. No bleeding, LOF, discharge, ctxs. Good FM. Has her routine NSTs scheduled, a growth sono in 2 wks, and her RCS. NST Reviewed and Verified by: Bibiana Morgan
[2023-01-25 14:26] VITALS: BP 118/78; PULSE 100; TEMP 36.8
== END 2023-01-25 14:18 | disposition home or self-care (01) ==
LOC: BCD 07:26 → OBS 12:58
PROVIDERS: PCP Nurse Practitioner Family; Visit Provider Obstetrics & Gynecology
DX: O09.523 Supervision of elderly multigravida, third trimester (principal); Z3A.35 35 weeks gestation of pregnancy
CPT/HCPCS: 59025

== ENCOUNTER 2023-02-01 07:59 | Outpatient (CLI) | payer BC, SELFPAY ==
[2023-02-01 13:26] VITALS: BP 112/84; PULSE 102; TEMP 36.6
[2023-02-01 13:27] VITALS: BP 112/84; PULSE 102
--- NOTE | 2023-02-01 14:36 | W.OBNST ---
Date of service: 02/01/23 Time of Service: 14:36 NST Evaluation Reason for NST Reasons for Nonstress Test: ADVANCED MATERNAL AGE Reason for NST Other: chronic hypertension Gestational Age Gestational Age in Weeks and Days: 36 Weeks and 5Days Test and Monitor Explained Test/Monitor Explained: Test Explained, Monitor Explained and Patient Verbalized Understanding Vital Signs Blood Pressure: 112/84 Pulse: 102 Temperature: 97.9 F Urine Results Urine Protein: Negative Urine Ketones: Negative Urine Glucose: Negative Urine Blood: Negative NST Information Date on Monitor: 02/01/23 Time on Monitor: 13: Date off Monitor: 02/01/23 Time off Monitor: 13:47 Total Time on Monitor: 24 NST Interventions: PO Hydration NST Evaluation Patient States Movement: Present FHR Baseline: 140 Variability: Moderate 6-25 bpm Accelerations: 15x15 Decelerations: None NST Results: Reactive Note Ultrasound Done: N/A. NST Note Note: Reactive NST. Patient will continue twice weekly NSTs secondary to chronic hypertension. She is currently taking labetalol 100 mg daily with satisfactory blood pressure control. NST Reviewed and Verified by: Jennifer Dexter
[2023-02-01 14:37] VITALS: BP 112/84; PULSE 102; TEMP 36.6
== END 2023-02-01 14:00 | disposition home or self-care (01) ==
LOC: BCD 08:45 → OBS 12:59
PROVIDERS: PCP Nurse Practitioner Family; Visit Provider Obstetrics & Gynecology Gynecology
DX: O09.523 Supervision of elderly multigravida, third trimester (principal); Z3A.36 36 weeks gestation of pregnancy; O13.3 Gestational [pregnancy-induced] hypertension without significant proteinuria, third trimester
CPT/HCPCS: 59025

== ENCOUNTER 2023-02-04 05:57 | Outpatient (CLI) | payer BC, SELFPAY | END 2023-02-04 05:58 | disposition home or self-care (01) | LOC: BCD 05:58 | PROVIDERS: PCP Nurse Practitioner Family; Visit Provider Obstetrics & Gynecology ==

== ENCOUNTER 2023-02-08 13:20 | Outpatient (CLI) | payer BC, SELFPAY ==
[2023-02-08 13:29] VITALS: BP 116/84; PULSE 98; TEMP 36.8
--- NOTE | 2023-02-08 15:05 | W.OBNST ---
Date of service: 02/08/23 Time of Service: 15:05 NST Evaluation Reason for NST Reasons for Nonstress Test: ADVANCED MATERNAL AGE Reason for NST Other: chronic hypertension Gestational Age Gestational Age in Weeks and Days: 37 Weeks and 3Days Test and Monitor Explained Test/Monitor Explained: Test Explained, Monitor Explained and Patient Verbalized Understanding Vital Signs Blood Pressure: 116/84 Pulse: 98 Temperature: 98.2 F NST Information Date on Monitor: 02/08/23 Time on Monitor: 13:10 Date off Monitor: 02/08/23 Time off Monitor: 13:35 Total Time on Monitor: 25 NST Interventions: PO Hydration NST Evaluation Patient States Movement: Present FHR Baseline: 140 Variability: Moderate 6-25 bpm Accelerations: 15x15 Decelerations: None NST Results: Reactive Note Ultrasound Done: N/A. NST Note Note: GBS RV culture performed and sent to lab. NST reacitve. Pt will f/u next Wednesday02/15/23 for repeat NST. NST Reviewed and Verified by: Jennifer Dexter
[2023-02-08 15:07] VITALS: BP 116/84; PULSE 98; TEMP 36.8
== END 2023-02-08 13:58 | disposition home or self-care (01) ==
LOC: BCD 13:21 → OBS 13:24
PROVIDERS: PCP Nurse Practitioner Family; Visit Provider Obstetrics & Gynecology Gynecology
DX: O09.523 Supervision of elderly multigravida, third trimester (principal); Z3A.37 37 weeks gestation of pregnancy; O10.913 Unspecified pre-existing hypertension complicating pregnancy, third trimester
CPT/HCPCS: 59025; 87081

== ENCOUNTER 2023-02-09 01:30 | Outpatient (CLI) | payer BC, SELFPAY ==
--- NOTE | 2023-02-09 08:00 | DI.US_ITS ---
Exam(s) US OB JANICE WEIGHT EXAM: US OB JANICE WEIGHT CLINICAL HISTORY: growth,CHRONIC HYPERTENSION,o10.919. TECHNIQUE: Transabdominal obstetrical ultrasound performed. COMPARISON: US POCUS EXAM from 07/21/2022 FINDINGS:: Number of fetuses: One. position: Vertex. Placental location: Posterior. No evidence of previa. BIOMETRIC DATA: BPD: 92mm = 37+ 2 weeks HC: 335mm = 38+ 3 weeks AC: 351mm = 39+ 0 weeks FL: 73 mm = 37+ 3 weeks EFW: 3465 Gms = 79% Composite Age: 38+ 0 weeks EDC: 23 February 2023 Heart Rate: 154BPM Amniotic fluid index: 18.4 cm. Amount of fluid is visually within normal limits. IMPRESSION: size and weight are within the expected range. DATA REPOSITORY:
== END 2023-02-09 01:50 ==
LOC: DI 01:30
PROVIDERS: PCP Nurse Practitioner Family; Visit Provider Obstetrics & Gynecology
DX: O10.919 Unspecified pre-existing hypertension complicating pregnancy, unspecified trimester (principal); Z3A.00 Weeks of gestation of pregnancy not specified
CPT/HCPCS: 76816

== ENCOUNTER 2023-02-22 02:35 | Outpatient (CLI) | payer BC, SELFPAY ==
[2023-02-22 10:33] LABS: HCT 33.7 % (36.0-46.0); HGB 11.5 g/dL (11.2-15.7); MCH 32.3 pg (27.0-33.0); MCHC 34.1 % (32.0-36.0); MCV 95 fL (80-95); MPV 8.8 fL (8.0-11.0); Platelet Count 244 10^3/uL (130-400); RBC 3.56 10^6/uL (3.93-5.22); RDW 13.4 % (11.7-14.6); RDW-SD 46.1 fL; WBC 9.11 10^3/uL (4.4-10.8)
== END 2023-02-22 02:36 | disposition home or self-care (01) ==
LOC: LBO 02:35
PROVIDERS: PCP Nurse Practitioner Family; Visit Provider Obstetrics & Gynecology Gynecology
DX: O10.013 Pre-existing essential hypertension complicating pregnancy, third trimester; O36.0130 Maternal care for anti-D [Rh] antibodies, third trimester, not applicable or unspecified; O34.211 Maternal care for low transverse scar from previous cesarean delivery; Z3A.39 39 weeks gestation of pregnancy; Z01.812 Encounter for preprocedural laboratory examination; Z01.818 Encounter for other preprocedural examination
CPT/HCPCS: 36415; 85027; 86850; 86900; 86901; 86920; 86870

== ENCOUNTER 2023-02-22 07:50 | Outpatient (CLI) | payer BC, SELFPAY ==
[2023-02-22 09:22] VITALS: BP 128/90; PULSE 88; TEMP 36.6
--- NOTE | 2023-02-22 09:51 | W.PM.OBHPL1 ---
Date of service: 02/22/23 Time of Service: 09:52 Assessment and Plan Assessment and plan (1) Previous section: Status: Chronic Assessment and plan: Preop counseling: She was informed of the risks of procedure including risk of damage to bowel, bladder, and blood vessels during the time of the delivery. If any of those injuries were to occur she may require a repair at the time of surgery or blood transfusion or possible hysterectomy. I reviewed the risk of infection and the administration of IV Abx prior to the surgery. She will be n.p.o. after midnight. Her preop labs will be performed today. Her questions were answered (2) General counseling and advice on contraceptive management: Status: Acute Assessment and plan: Patient desires permanent sterilization. She was counseled regarding risks of procedure including injury to bowel, bladder, ureters, blood vessels requiring a larger incision and possible blood transfusion. She knows that this procedure is permanent and she will be sterile as a result of the bilateral salpingectomy. Informed consent was signed and her questions were answered. OB-HPI Labor/Delivery History of Present Illness Reason for Visit: Preop H&P, NST Chief Complaint: Scheduled Section , Inidcation for Scheduled : Previous .. PAULINA Calculator Estimated Delivery Date Method Current WG Current Estimate 02/26/23 LMP (Certain) 39w 3d Other Estimates 02/28/23 Ultrasound #1 39w 1d History of Present Expected Delivery Route/Plan Previous x 2- MD care FOB/ Tristen Handy - healthy, Specific Issues/Plan 1. Advanced maternal age - 12/2022. [facility] [place]. . Nl Panorama. M. Cf neg, SMA neg 3. Previous x 2, Plans RCS and BTL 4. Family history - Chiari malformation - son. 6. Essential hypertension (And fam hx PEC) - ASA recommended daily - Start Labetalol 08/27/22 (On 100mg daily). - MFM recommended 3rd trimester u/s and weekly NSTs after 32w - Normal labs, 24hr urine: Protein 142mg 8. RH neg - rhogam at 28 weeks____ 9. Anxiety and depression - referral to [facility] for coordination of counseling services. 10. PAP result=ASCUS, HPV negative, repeat w/HPV test in 3 yrs Narrative: Patient presents for preoperative history and physical anticipation of a repeat delivery and bilateral tubal sterilization to be performed on 02/24/2023. Informed Consent Informed Consent: Section Delivery and Sterilization (Counseled regarding risks and benefits of the procedure and wishes to proceed) Review of Systems All systems reviewed & are unremarkable except as noted in HPI and below PFSH All Active Problems (Updated 02/22/23 @ 09:58 by Jennifer Dexter MD) General counseling and advice on contraceptive management (Acute) Anxiety (Chronic) Benign positional vertigo (Acute) Chronic sinusitis (Acute) BMI 26.0-26.9,adult (Acute) (Acute) Multigravida of advanced maternal age in first trimester (Acute) Previous section (Chronic) Fibroid uterus (Acute) Depression (Chronic) Essential hypertension (Acute) Rh negative state in antepartum period (Acute) Acute adjustment disorder with mixed anxiety and depressed mood (Acute) HTN (hypertension) (Chronic) Positive test (Acute) Rh negative status during (Acute) Chronic hypertension affecting (Acute) Medical History (Updated 02/22/23 @ 09:58 by Jennifer Dexter MD) Acne URI (upper respiratory infection) Uterine perforation by intrauterine contraceptive device Surgical History (Updated 08/12/22 @ 14:16 by Shanti Cook CNM) section (09/14/14) PC/S for arrest of dilation/descent at 7cm. M. Molina. 6lb 2 oz. L ovarian cystectomy for suspected endometrioma. 07/16/16 Elective RC/Dain Gonzalez. aoc Status post laparotomy 06/14/2019. After preparation of uterus with hysteroscopic removal of retained IUD arms. Hysterotomy repaired. Family History (Updated 08/12/22 @ 14:32 by Shanti Cook CNM) Mother Essential hypertension Hyperlipidemia Mental disorder Diabetes Father Essential hypertension Sister Alcohol abuse Essential hypertension Mental disorder Preeclampsia Brother Substance abuse Social History Smoking/Tobacco Use Status: Former Tobacco Use Quit Date: 08/16/08 Smoking risk assessment performed?: Yes Alcohol Intake: never Drug use: Never Substance use type: does not use Household members: spouse, children and other Details: Elizabet Employed at [employer] Number of Children: 2 Do you feel safe at home: Yes Do you feel safe in your relationship?: Yes Female Reproductive History Menstrual control method: copper IUCD History History 3 Para 2 Hx # Term Pregnancies 2 Multiple births Hx # Pregnancies Ectopic pregnancies AB induced Hx Number of Living Children AB spontaneous Past Pregnancies Del. Date GA/Weeks # Preg Succ Route Wgt Sex Labor Lgth Anesthesia Location Prov Complic 09/14/14 40 No Yes 6 lb 13 oz Male 07/20/16 39 No Yes 6 lb 11 oz Male [place] Delivery Date: 09/14/14 Last Updated by: Shanti Cook CNM for FTP at 7 cms. [place]. Autism spectrum disorder Delivery Date: 07/20/16 Last Updated by: Shanti Cook CNM Carlos schedule . Chiari Malformation Meds Allergies and Home Medications Allergies Allergy/AdvReac Type Severity Reaction Status Date / Time No Known Allergies Allergy Unverified 01/18/23 14:27 Home Medications Medication Instructions Recorded Confirmed Type prenat.vits,mariah,don-poxp-wbixm 1 tab PO DAILY 07/02/22 02/01/23 History calcium carbonate 300 mg (750 mg) 300 mg PO TID PRN 08/12/22 02/01/23 History chewable tablet (Tums) aspirin 81 mg tablet,delayed 81 mg PO DAILY 08/27/22 02/01/23 History release (Adult Aspirin Regimen) aspirin 81 mg tablet,delayed 81 mg PO DAILY 11/09/22 02/01/23 History release (Adult Aspirin Regimen) labetalol 100 mg tablet 100 mg PO DAILY #60 tabs 11/23/22 02/01/23 Rx famotidine 20 mg tablet (Pepcid AC 20 mg PO DAILY 01/04/23 02/01/23 History Maximum Strength) Exam Physical Exam Vital Signs Reviewed: Yes Notable Details: Diastolic blood pressure 90. Patient has been compliant with labetalol 100 Constitutional Constitutional: no acute distress Comments: Vaginal exam deferred. Detailed Labor and Delivery Exam Bernal Score: Cervical Points Exam 0 1 2 3 Dilation Closed 1-2cm 3-4 cm 5-6cm Effacement 0-30% 40-50% 60-70% 80% Consistency Firm Medium Soft Station -3 -2 -1,0 +1,+2 Position Posterior Mid Anterior Contraction Frequency(min): Infrequent Contraction Intensity: Mild Fetus A Heart Rate Baseline: 140 Monitor Accelerations: 15 X 15 Monitor Decelerations: None Variability: Moderate (6-25 BPM) Presentation: Cephalic Categories: Category I Est. Weight: 7 lb 7.931 oz HEENT Exam HEENT Exam: Normal Neck Exam Neck Exam: Normal Chest/Brest/Axilla Exam Chest Exam: Not Done Breast Exam Breast Exam: Not Done Respiratory Exam Respiratory Exam: Normal Cardiovascular Exam Cardiovascular Exam: Normal Abdominal Exam Abdominal Exam: Normal (No focal uterine tenderness.) Rectal Exam Rectal Exam: Not Done Exam Exam: Not Done Extremities Exam Extremities Exam: Normal (2+ DTRs no clonus) Back/Spine/Pelvis Exam Back Exam: Not Done Skin Exam Skin Exam: Normal Neurological Exam Neurological Exam: Normal Psychiatric Exam Psychiatric Exam: Normal Risk Assessment Risk for Shoulder Dystocia Historical/Initial OB: NEGATIVE FOR: Pelvic Abnormality, Pre- BMI>30, Previous Shoulder Dystocia or Previous Macrosomia Risk for Pre-Eclampsia Date Initiated/Initials: KM Yes, if one or more: POSTIVE FOR: Chronic HTN; NEGATIVE FOR: Hx Pre-E/Gest HTN, Multiple Gestation, Pre-gestational DM, Renal Disease, Systemic Lupus or APA Syndrome Yes, if 2 or more: POSITIVE FOR: Age>= 35 yrs and Mother/Sister w/ Pre-E; NEGATIVE FOR: Nulliparity, >10yr btwn pregnancies, BMI>30, ethinicty or Previous IUGR Risks Reviewed Risks Reviewed Upon Admission: Yes
--- NOTE | 2023-02-22 10:11 | W.OBNST ---
Date of service: 02/22/23 Time of Service: 10:11 NST Evaluation Reason for NST Reasons for Nonstress Test: ADVANCED MATERNAL AGE Gestational Age Gestational Age in Weeks and Days: 39 Weeks and 3Days Test and Monitor Explained Test/Monitor Explained: Test Explained, Monitor Explained and Patient Verbalized Understanding Vital Signs Blood Pressure: 128/90 Pulse: 88 Temperature: 97.9 F NST Information Date on Monitor: 02/22/23 Time on Monitor: 09:24 Date off Monitor: 02/22/23 Time off Monitor: 09:52 Total Time on Monitor: 28 NST Interventions: PO Hydration NST Evaluation Patient States Movement: Present FHR Baseline: 140 Variability: Moderate 6-25 bpm Accelerations: 15x15 Decelerations: None NST Results: Reactive Note Ultrasound Done: N/A. NST Note Note: Reactive NST. Patient had preoperative history and physical signed while at the center. She is due to have her preop labs obtained this afternoon. She will be notified when to present to the center. Patient is clear that she wishes permanent sterilization at the time of her repeat delivery. NST Reviewed and Verified by: Jennifer Dexter
[2023-02-22 10:12] VITALS: BP 128/90; PULSE 88; TEMP 36.6
== END 2023-02-22 09:58 | disposition home or self-care (01) ==
LOC: BCD 07:58 → OBS 09:17
PROVIDERS: PCP Nurse Practitioner Family; Visit Provider Obstetrics & Gynecology Gynecology
DX: Z98.891 History of uterine scar from previous surgery (principal); Z30.09 Encounter for other general counseling and advice on contraception; O09.523 Supervision of elderly multigravida, third trimester; Z3A.39 39 weeks gestation of pregnancy
CPT/HCPCS: 59025

== ENCOUNTER 2023-02-24 06:12 | Inpatient (IN) | payer BC, SELFPAY ==
[2023-02-24] VITALS (15 sets, daily range): BP systolic 102–119; BP diastolic 55–85; PULSE 56–97; RESP 12–23; TEMP 36.1–36.8; O2SAT 94–100; BMI 26.6
[2023-02-24] MEDS: AZITHROMYCIN 500 MG in Normal Saline 250 ML 250 MG IVPB (06:32)
[2023-02-24] MEDS: Lactated Ringers 1,000 ML 200 ML IV (06:36)
[2023-02-24] MEDS: Sodium Citrate 30 ML CUP PO (07:10)
--- NOTE | 2023-02-24 07:10 | ANES.PREOP_ITS ---
General Info Date of Service Date Performed: 02/24/23 Height: 5 ft 6 in Weight: 74.843 kg Body Mass Index (BMI): 26.6 Surgical Procedure: Operation Date: 02/24/23 07:40 Proposed Procedure Side Surgeon p Repeat Section, Bilateral Salpingectomy Jennifer Dexter MD Meds Allergies and Home Medications Allergies Allergy/AdvReac Type Severity Reaction Status Date / Time No Known Allergies Allergy Unverified 01/18/23 14:27 Home Medication Medication Instructions Recorded prenat.vits,mariah,[id number] 1 tab PO DAILY 07/02/22 calcium carbonate 300 mg (750 mg) 300 mg PO TID PRN 08/12/22 chewable tablet (Tums) aspirin 81 mg tablet,delayed 81 mg PO DAILY 08/27/22 release (Adult Aspirin Regimen) famotidine 20 mg tablet (Pepcid AC 20 mg PO DAILY 01/04/23 Maximum Strength) labetalol 100 mg tablet 100 mg PO HS 02/23/23 Current Visit Medications: Current Medications Generic Name Dose Route Start Last Admin Trade Name Freq PRN Reason Stop Dose Admin Citric Acid/Sodium Citrate 30 ml 02/24/23 07:00 Sodium Citrate 30 Ml Cup PO PREOP QUENTIN Ringer's Solution 1,000 mls @ 200 mls/hr 02/24/23 06:15 02/24/23 06:36 IV 200 mls/hr INFUSION QUENTIN Administration Sodium Chloride 500 mls @ 0 mls/hr 02/24/23 06:12 Saline 500ml Bag IV PRN PRN As Directed Cefazolin Sodium/Dextrose 2 gm in 50 mls @ 100 mls/hr 02/24/23 06:15 Ancef Duplex IVPB PREOP QUENTIN Azithromycin 500 mg/ Sodium 250 mls @ 250 mls/hr 02/24/23 06:15 02/24/23 06:32 Chloride IVPB 250 mls/hr PREOP QUENTIN Administration IV Miscellaneous Supplies 1 each 02/24/23 06:15 Iv Access IV DIRECTED QUENTIN Sodium Chloride 0 ml 02/24/23 06:12 Normal Saline Flush 10 Ml Syr IVP PRN PRN PFSH Active Problems Active Problems: Problem Status Onset Code General counseling and advice on contraceptive management Z30.09 Anxiety F41.9 Benign positional vertigo H81.10 Chronic sinusitis J32.9 BMI 26.0-26.9,adult Z68.26 Z34.90 Multigravida of advanced maternal age in first trimester O09.521 Previous section Z98.891 Fibroid uterus D25.9 Depression F32.A Essential hypertension I10 Rh negative state in antepartum period O26.899, Z67.91 Acute adjustment disorder with mixed anxiety and depressed mood F43.23 HTN (hypertension) I10 Positive test Z32.01 Rh negative status during O26.899, Z67.91 Chronic hypertension affecting O10.919 Medical History Medical History (Updated 02/22/23 @ 09:58 by Jennifer Dexter MD) Acne URI (upper respiratory infection) Uterine perforation by intrauterine contraceptive device Surgical History Surgical History (Updated 08/12/22 @ 14:16 by Shanti Cook CNM) section (09/14/14) PC/S for arrest of dilation/descent at 7cm. MSachin Molina. 6lb 2 oz. L ovarian cystectomy for suspected endometrioma. 07/16/16 Elective RC/SSachin Gonzalez. aoc Status post laparotomy 06/14/2019. After preparation of uterus with hysteroscopic removal of retained IUD arms. Hysterotomy repaired. Tobacco Smoking/Tobacco Use Status: Former Tobacco Use Alcohol Alcohol Intake: never Substance Use Substance use: Never Substance use type: does not use Prental History History 3 Para 2 Hx # Term Pregnancies 2 Multiple births Hx # Pregnancies Ectopic pregnancies AB induced Hx Number of Living Children AB spontaneous Past Pregnancies Del. Date GA/Weeks # Preg Succ Route Wgt Sex Labor Lgth Anesth esia Location [facility] 09/14/14 40 No Yes 3090.098 g Male 07/20/16 41 No Yes 3033.399 g Male [place] Delivery Date: 09/14/14 Last Updated by: Shanti Cook CNM for FTP at 7 cms. Molina. Autism spectrum disorder Delivery Date: 07/20/16 Last Updated by: Shanti Cook CNM Carlos schedule . Chiari Malformation Vital Signs and Lab Results Vital Signs Most Recent Vital Signs in EMR: Most Recent Vital Signs Temp Pulse Resp BP 36.5 C 97 H 16 119/85 02/24/23 06:13 02/24/23 06:15 02/24/23 06:13 02/24/23 06:15 Lab Results Blood Type / Crossmatch: Patient ABO/Rh B Negative 02/22/23 Antibody Screen POSITIVE 02/22/23 Crossmatch See Detail 02/22/23 Complete Blood Count: White Blood Count 9.11 10^3/uL (4.4-10.8) 02/22/23 10:18 Red Blood Count 3.56 10^6/uL (3.93-5.22) L 02/22/23 10:18 Hemoglobin 11.5 g/dL (11.2-15.7) 02/22/23 10:18 Hematocrit 33.7 % (36.0-46.0) L 02/22/23 10:18 Platelet Count 244 10^3/uL (130-400) 02/22/23 10:18 Complete Metabolic Panel: No Data to Display Liver Function Panel: No Data to Display Coagulation Panel: No Data to Display Cardiac Panel: No Data to Display Arterial Blood Gas: No Data to Display Venous Blood Gas: No Data to Display Pancreas Panel: No Data to Display Thyroid Panel: No Data to Display Infectious Disease: No Data to Display Blood Cultures: No Data to Display Toxicology Panel: No Data to Display Panel: No Data to Display Anesthesia Assessment and Plan Anesthesia History Personal History: No History of Anesthesia Complications Family History: No Family History of Anesthesia Complications Exercise Tolerance Exercise Tolerance: Metabolic Equivalents>4 Pertinent Negatives Pertinent Negatives: No Major Cardiovascular Symptoms or Complaints and No Major Pulmonary Symptoms or Complaints Cardiac & Pulmonary Exam Cardiac Exam: Normal S1/S2 Heart Sounds Pulmonary Exam: Clear Bilateral Breath Sounds Implantable Cardiac Device Does patient have a Pacemaker or an ICD?: No ASA Classification ASA Score: ASA 2 Emergency Case?: No NPO Status NPO Status: NPO Clears >2 hours, Solids >8 hours Status Status: Confirmed Anesthesia Plan Resuscitation Status: Full Code Anesthesia Technique: Spinal Anesthesia Airway Planned: Natural Airway Pain Management: Intrathecal Analgesia Monitors Used: Standard Monitors
[2023-02-24] MEDS: ceFAZolin 2 GM/50 ML BAG IVPB (07:40)
--- NOTE | 2023-02-24 07:40 | ANES.PREOP_ITS ---
General Info Date of Service Date Performed: 02/24/23 Height: 5 ft 6 in Weight: 74.843 kg Body Mass Index (BMI): 26.6 Surgical Procedure: Operation Date: 02/24/23 07:40 Proposed Procedure Side Surgeon p Repeat Section, Bilateral Salpingectomy Jennifer Dexter MD Meds Allergies and Home Medications Allergies Allergy/AdvReac Type Severity Reaction Status Date / Time No Known Allergies Allergy Unverified 01/18/23 14:27 Home Medication Medication Instructions Recorded prenat.vits,mariah,[id number] 1 tab PO DAILY 07/02/22 calcium carbonate 300 mg (750 mg) 300 mg PO TID PRN 08/12/22 chewable tablet (Tums) aspirin 81 mg tablet,delayed 81 mg PO DAILY 08/27/22 release (Adult Aspirin Regimen) famotidine 20 mg tablet (Pepcid AC 20 mg PO DAILY 01/04/23 Maximum Strength) labetalol 100 mg tablet 100 mg PO HS 02/23/23 Current Visit Medications: Current Medications Generic Name Dose Route Start Last Admin Trade Name Freq PRN Reason Stop Dose Admin Citric Acid/Sodium Citrate 30 ml 02/24/23 07:00 Sodium Citrate 30 Ml Cup PO PREOP QUENTIN Ringer's Solution 1,000 mls @ 200 mls/hr 02/24/23 06:15 02/24/23 06:36 IV 200 mls/hr INFUSION QUENTIN Administration Sodium Chloride 500 mls @ 0 mls/hr 02/24/23 06:12 Saline 500ml Bag IV PRN PRN As Directed Cefazolin Sodium/Dextrose 2 gm in 50 mls @ 100 mls/hr 02/24/23 06:15 Ancef Duplex IVPB PREOP QUENTIN Azithromycin 500 mg/ Sodium 250 mls @ 250 mls/hr 02/24/23 06:15 02/24/23 06:32 Chloride IVPB 250 mls/hr PREOP QUENTIN Administration IV Miscellaneous Supplies 1 each 02/24/23 06:15 Iv Access IV DIRECTED QUENTIN Sodium Chloride 0 ml 02/24/23 06:12 Normal Saline Flush 10 Ml Syr IVP PRN PRN PFSH Active Problems Active Problems: Problem Status Onset Code General counseling and advice on contraceptive management Z30.09 Anxiety F41.9 Benign positional vertigo H81.10 Chronic sinusitis J32.9 BMI 26.0-26.9,adult Z68.26 Z34.90 Multigravida of advanced maternal age in first trimester O09.521 Previous section Z98.891 Fibroid uterus D25.9 Depression F32.A Essential hypertension I10 Rh negative state in antepartum period O26.899, Z67.91 Acute adjustment disorder with mixed anxiety and depressed mood F43.23 HTN (hypertension) I10 Positive test Z32.01 Rh negative status during O26.899, Z67.91 Chronic hypertension affecting O10.919 Medical History Medical History (Updated 02/22/23 @ 09:58 by Jennifer Dexter MD) Acne URI (upper respiratory infection) Uterine perforation by intrauterine contraceptive device Surgical History Surgical History (Updated 08/12/22 @ 14:16 by Shanti Cook CNM) section (09/14/14) PC/S for arrest of dilation/descent at 7cm. MSachin Molina. 6lb 2 oz. L ovarian cystectomy for suspected endometrioma. 07/16/16 Elective RC/SSachin Gonzalez. aoc Status post laparotomy 06/14/2019. After preparation of uterus with hysteroscopic removal of retained IUD arms. Hysterotomy repaired. Tobacco Smoking/Tobacco Use Status: Former Tobacco Use Alcohol Alcohol Intake: never Substance Use Substance use: Never Substance use type: does not use Prental History History 3 Para 2 Hx # Term Pregnancies 2 Multiple births Hx # Pregnancies Ectopic pregnancies AB induced Hx Number of Living Children AB spontaneous Past Pregnancies Del. Date GA/Weeks # Preg Succ Route Wgt Sex Labor Lgth Anesth esia Location [facility] 09/14/14 40 No Yes 3090.098 g Male 07/20/16 41 No Yes 3033.399 g Male [place] Delivery Date: 09/14/14 Last Updated by: Shanti Cook CNM for FTP at 7 cms. [place]. Autism spectrum disorder Delivery Date: 07/20/16 Last Updated by: Shanti Cook CNM Carlos schedule . Chiari Malformation Vital Signs and Lab Results Vital Signs Most Recent Vital Signs in EMR: Most Recent Vital Signs Temp Pulse Resp BP 36.5 C 97 H 16 119/85 02/24/23 06:13 02/24/23 06:15 02/24/23 06:13 02/24/23 06:15 Lab Results Blood Type / Crossmatch: Patient ABO/Rh B Negative 02/22/23 Antibody Screen POSITIVE 02/22/23 Crossmatch See Detail 02/22/23 Complete Blood Count: White Blood Count 9.11 10^3/uL (4.4-10.8) 02/22/23 10:18 Red Blood Count 3.56 10^6/uL (3.93-5.22) L 02/22/23 10:18 Hemoglobin 11.5 g/dL (11.2-15.7) 02/22/23 10:18 Hematocrit 33.7 % (36.0-46.0) L 02/22/23 10:18 Platelet Count 244 10^3/uL (130-400) 02/22/23 10:18 Complete Metabolic Panel: No Data to Display Liver Function Panel: No Data to Display Coagulation Panel: No Data to Display Cardiac Panel: No Data to Display Arterial Blood Gas: No Data to Display Venous Blood Gas: No Data to Display Pancreas Panel: No Data to Display Thyroid Panel: No Data to Display Infectious Disease: No Data to Display Blood Cultures: No Data to Display Toxicology Panel: No Data to Display Panel: No Data to Display Anesthesia Assessment and Plan Anesthesia History Personal History: No History of Anesthesia Complications Family History: No Family History of Anesthesia Complications Exercise Tolerance Exercise Tolerance: Metabolic Equivalents>4 Pertinent Negatives Pertinent Negatives: No Major Cardiovascular Symptoms or Complaints, No Major Pulmonary Symptoms or Complaints and No History of CVA/TIA Cardiac & Pulmonary Exam Cardiac Exam: Normal S1/S2 Heart Sounds Pulmonary Exam: Clear Bilateral Breath Sounds Implantable Cardiac Device Does patient have a Pacemaker or an ICD?: No Airway Exam Known Difficult Airway: No Mallampati Class: 3 Mouth Opening: Normal (> 3cm) Thyromental Distance: Greater than 3 cm Neck Range of Motion: Full ROM Neck Circumference: Normal Teeth Condition: Normal Dentition ASA Classification ASA Score: ASA 2 Emergency Case?: No NPO Status NPO Status: NPO Clears >2 hours, Solids >8 hours Status Status: Confirmed Anesthesia Plan Resuscitation Status: Full Code Anesthesia Technique: Spinal Anesthesia Airway Planned: Natural Airway Monitors Used: Standard Monitors
--- NOTE | 2023-02-24 08:12 | FALL_PTH ---
PATIENT: Jeana Thornton LOC: OBS U#:[id number] AGE/SX: 37/F ROOM: OBS.301 RE02/24/[address]: Bibiana Morgan MD : 1985 BED: A DIS: 02/26/2023 SPEC #: [id number] RECD: 02/24/23 12:45 STATUS: MARRY REQ #: [id number] PERRY: 02/24/23 08:[address]: Bibiana Morgan DEPT: Surgical Specimen RECD BY: Jane Terrazas ENTERED: 02/24/23 12:52 SP TYPE: Fall OTHR DR: MORGAN SCALES, SHEFALI Tissues: 1 - FALLOPIAN TUBE (STERILIZATION) 2 - FALLOPIAN TUBE (STERILIZATION) Procedures: GROSS AND MICRO LEVEL 2 Comments: [id number]
[2023-02-24] MEDS: Bupivacaine 0.25% Pres-Free 30 ML VIAL (08:34)
--- NOTE | 2023-02-24 08:46 | W.PM.OBCSECT ---
Date of service: 02/24/23 Time of Service: 08:47 Operative Note Operative Note Delivery Method: Scheduled and Repeat Previous LT Incision: Yes DATE OF PROCEDURE: 02/24/23 PRE-OP DIAGNOSES: Prior section, declines trial of labor, undesired fertility POST-OP DIAGNOSES: same PROCEDURE: Repeat low-transverse section with bilateral salpingectomy SURGEON: Mickie Patrick Dater Assembler: Jennifer Dexter Anesthesia: local and spinal Estimated blood loss (mL): 800 Pathology: none sent Complications: None Patient was transported to: floor Patient's condition: stable Indications: Term intrauterine gestation, prior sections. Undesired fertility Findings: Normal-appearing uterus, fallopian tubes, ovaries. Delivery of a viable male Procedure Description: After full informed consent was obtained, and risk benefits and alternatives of section and salpingectomy for sterilization were discussed with the patient, patient was taken the operating suite. She is placed in the seated position and spinal anesthesia administered, tested, and found to be adequate. She was then placed in the dorsal supine position with leftward tilt. She had received Zithromax 500 mg and Ancef 2 g intravenous for surgical site infection prophylaxis. She had pneumatic compression stockings for DVT prophylaxis. Kerr catheter was inserted for continuous bladder drainage. Vaginal preparation was performed as well as abdominal preparation. Quarter percent Marcaine was infiltrated into her previous surgical scar. A Pfannenstiel skin incision was made through her previous scar and carried down to the underlying fascia. The fascia was nicked in the midline and fascial incision extended laterally. Rectus muscles were split from the fascia. Rectus muscles were in the midline peritoneum identified tented up and entered sharply. The peritoneal incision was then extended superiorly and inferiorly. The bladder blade was inserted and the vesicouterine peritoneum identified and meticulously dissected away from the lower uterine segment. A low transverse uterine incision was made and extended bluntly laterally. There was clear amniotic fluid noted. vertex delivered without difficulty. Shoulders followed with ease. Three-vessel cord was noted clamped x2 and cut and the infant was handed off to the waiting therapeutic riding instructor after the appropriate delayed cord interval. At this point cord blood sample was obtained. Placenta was manually expressed from the uterus. The uterus was then exteriorized and cleared of all clot and debris. The uterine incision was then closed in a 2 layer closure of 0 Monocryl suture with the first being running locked, the second layer being imbricating. Uterine incision was inspected and noted to be hemostatic. Attention was then turned to the left fallopian tube which was cautery transected and removed in toto. A similar procedure was carried out on the right fallopian tube. Both pedicles were reinspected and noted to be hemostatic. Abdomen was irrigated with copious amounts of normal saline and the uterus was then returned to the abdomen. Both fallopian tube pedicles, along with the uterine incision were inspected and noted to be hemostatic. At this point the fascial incision was closed using 0 Vicryl suture in a running fashion. Subcutaneous tissue irrigated with copious amounts of normal saline subcu space was reapproximated with 2-0 Vicryl in a simple interrupted fashion. Subcuticular stitch was used to close the skin incision and Steri-Strips were placed. Sterile dressing was placed. Uterus was expressed of all clot and noted to be firm and 2 cm below the umbilicus. Her Kerr catheter was in place draining concentrated urine. Findings: 1 normal tubes, ovaries, uterus 2. Delivery of viable male infant Complications: None apparent Fluids: Crystalloid per anesthesia Pathology: None sent EBL: 800 mL. [place] Gender: Male
[2023-02-24] MEDS: Oxytocin/Normal Saline 30 UNIT/500 ML BAG 95 UNITS IV (08:47)
[2023-02-24] MEDS: Naloxone 0.4 MG/ML VIAL IVP (09:51)
[2023-02-24] MEDS: Lactated Ringers 1,000 ML 999 ML IV (10:01)
[2023-02-24] MEDS: Normal Saline Flush 10 ML SYR IVP (10:18)
[2023-02-24] MEDS: Metoclopramide 10 MG/2 ML VIAL IVP (10:18)
--- NOTE | 2023-02-24 10:18 | W.PM.OBPNV1 ---
Date of service: 02/24/23 Time of Service: 10:18 Subjective Subjective Narrative: Called to see patient in the immediate postoperative period feeling nauseated and somewhat dizzy. Vital signs are stable with blood pressures 1 teens over 60s. Appropriate urine output. Pulse is 56. Room air O2 sat 99. Lungs are clear abdomen is soft uterus is firm clinically appears stable. My impression is that she is having some post , postoperative nausea which may be related to her spinal. We will keep a close eye on her current status. She is getting a fluid bolus, IV antiemetics. Dr. Dexter notified and will follow up with the patient shortly. Anesthesia also aware, will reevaluate. Exam Physical Exam Vital signs: Temp Pulse Resp BP Pulse Ox 97.3 F L 56 L 16 111/64 99 02/24/23 09:02 02/24/23 10:05 02/24/23 10:05 02/24/23 10:05 02/24/23 10:05
--- NOTE | 2023-02-24 12:08 | W.ANESPOSTOP ---
Postoperative Evaluation Date, Time and Location Date Performed: 02/24/23 Time Performed: 12:01 Patient Location: Obstetrics Vital Signs Most Recent Imported Vital Signs: Most Recent Vital Signs Temp Pulse Resp BP Pulse Ox 36.3 C L 73 16 106/65 100 02/24/23 09:02 02/24/23 10:51 02/24/23 10:51 02/24/23 10:51 02/24/23 10:51 Pain Score Most Recent Pain Score: Most Recent Pain Score Pain Level 0 02/24/23 09:02 Assessment Mental Status: Awake (Alert & Oriented to Patient Baseline) Airway and Respiratory Function: Patent airway with normal (patient baseline) respiratory exam Cardiovascular Function: Hemodynamically Stable Hydration Status: Adequately Hydrated Nausea & Vomiting: No Nausea or Vomiting Pain: Pain is tolerable per patient Peripheral Nerve Block: Patient did not receive a nerve block Postoperative Comments:: Nausea and dizziness improved, able to rest.
[2023-02-24] MEDS: Ketorolac 30 MG/ML VIAL IVP (14:32)
[2023-02-24] MEDS: Ibuprofen 600 MG TAB PO (23:00)
[2023-02-25] MEDS: oxyCODONE 5 mg/Acetaminophen 325 mg TAB PO ×4 (02:38→21:08)
[2023-02-25] MEDS: Ibuprofen 600 MG TAB PO ×3 (05:54→20:50)
[2023-02-25 07:09] LABS: Abs Immature Grans 0.05 10^3/uL (0.0-0.06); Absolute Basophil Count 0.04 10^3/uL (0.0-0.2); Absolute Eosinophil Count 0.14 10^3/uL (0.0-0.7); Absolute Monocyte Count 0.37 10^3/uL (0.1-0.8); Basophils % 0.3; Eosinophils % 1.2; HGB 11.1 g/dL (11.2-15.7); Immature Grans % 0.4; Lymphocytes % 14.2; MCHC 33.6 % (32.0-36.0); MCV 95 fL (80-95); Monocytes % 3.1; Neutrophils % 80.8; Platelet Count 239 10^3/uL (130-400); RBC 3.47 10^6/uL (3.93-5.22); RDW 13.5 % (11.7-14.6); RDW-SD 47.5 fL; WBC 11.93 10^3/uL (4.4-10.8)
[2023-02-25 07:12] LABS: Absolute Lymphocyte Count 1.69 10^3/uL (1.2-3.4); Absolute Neutrophil Count 9.64 10^3/uL (1.2-6.7)
--- NOTE | 2023-02-25 07:28 | W.PM.OBPNV1 ---
Date of service: 02/25/23 Time of Service: 07:28 Assessment and Plan Assessment and plan (1) Status post repeat low transverse section: Status: Acute Assessment and plan: Post opday #1, doing well. ambulating, tolerating PO. Breast feeding. Anticipate D/C in 24-48 hours Subjective Subjective Narrative: Patient seen and examined this AM. Much better than yesterday AM in the immediate postpartm period. Scop patch removed which improved her symptoms of nausea and dizziness. Exam Physical Exam Vital signs: Temp Pulse Resp BP Pulse Ox 98.3 F 73 18 114/71 100 02/24/23 20:00 02/24/23 20:00 02/24/23 20:00 02/24/23 20:00 02/24/23 16:30 Vital Signs Reviewed: Yes Constitutional Constitutional: no acute distress HEENT Exam HEENT Exam: Normal Neck Exam Neck Exam: Normal Respiratory Exam Respiratory Exam: Normal Cardiovascular Exam Cardiovascular Exam: Normal Abdominal Exam Abdomen: Tender Comments: incision dressed Fundal Exam Fundus: Below Umbilicus and Firm Extremities Exam Extremity Exam: Normal; negative Calf Tenderness or Edema Neurological Exam Neurological Exam: Normal Psychiatric Exam Psychiatric Exam: Normal Results Hemoglobin/Hematocrit: Hgb 11.1 g/dL (11.2-15.7) L 02/25/23 06:15 Hct 33.0 % (36.0-46.0) L 02/25/23 06:15 Abnormal Lab Findings: Abnormal Labs 02/25/23 06:15 WBC 11.93 H RBC 3.47 L Hgb 11.1 L Hct 33.0 L Absolute Neutrophils 9.64 H
[2023-02-25] MEDS: Acetaminophen 325 MG TAB 650 MG PO (12:24)
[2023-02-25] MEDS: Labetalol 100 MG TAB PO (23:00)
[2023-02-25 23:06] VITALS: BP 130/86; PULSE 103; TEMP 36.6; O2SAT 97
[2023-02-26 04:00] VITALS: BP 114/77; PULSE 103; TEMP 36.5
[2023-02-26] MEDS: oxyCODONE 5 mg/Acetaminophen 325 mg TAB PO ×2 (04:18→13:28)
[2023-02-26] MEDS: Ibuprofen 600 MG TAB PO ×2 (04:18→09:34)
--- NOTE | 2023-02-26 08:06 | W.PM.OBPNV1 ---
Date of service: 02/26/23 Time of Service: 08:06 Assessment and Plan Assessment and plan (1) Status post repeat low transverse section: Status: Acute Assessment and plan: Postoperative day #2 status post repeat low transverse section. Overall doing well. Working on breast-feeding. May discharge today, or tomorrow based on patient's preference. All questions were answered (2) Chronic hypertension affecting : Status: Acute Assessment and plan: Continue labetalol 100 mg p.o. daily Subjective Subjective Patient's Mood: Appropriate [place] feeding status: Exclusively breast feeding Narrative: Patient seen and examined this morning overall doing well. Had a few hours of good sleep last night. Is working on breast-feeding. December Exam Physical Exam Vital signs: Temp Pulse Resp BP Pulse Ox 97.7 F 103 H 18 114/77 97 02/26/23 04:00 02/26/23 04:00 02/24/23 20:00 02/26/23 04:00 02/25/23 23:06 Vital Signs Reviewed: Yes Constitutional Constitutional: no acute distress HEENT Exam HEENT Exam: Normal Neck Exam Neck Exam: Normal Respiratory Exam Respiratory Exam: Normal Cardiovascular Exam Cardiovascular Exam: Normal Abdominal Exam Comments: Soft nontender Fundal Exam Comment: Firm below the umbilicus Extremities Exam Extremity Exam: Normal; negative Calf Tenderness Psychiatric Exam Psychiatric Exam: Normal Results Hemoglobin/Hematocrit: Hgb 11.1 g/dL (11.2-15.7) L 02/25/23 06:15 Hct 33.0 % (36.0-46.0) L 02/25/23 06:15 Abnormal Lab Findings: Abnormal Labs 02/25/23 06:15 WBC 11.93 H RBC 3.47 L Hgb 11.1 L Hct 33.0 L Absolute Neutrophils 9.64 H
--- NOTE | 2023-02-26 08:08 | W.PM.OBDISCH ---
Date of service: 02/26/23 Time of Service: 08:08 DS: Diagnosis Discharge Diagnosis (1) Status post repeat low transverse section: Status: Acute Asessment and Plan: Postoperative hemorrhage 2 status post repeat low transverse section. Pain well controlled. Ambulating, tolerating regular diet and oral pain medication. Breast-feeding reasonably well. Anticipate discharge today, or tomorrow (2) Chronic hypertension affecting : Status: Acute Asessment and Plan: Continue labetalol daily Discharge Plan Disposition Condition: Good Discharge Details Reason For Visit: Delivery Admit Date/Time: 02/24/23 06:12 Admit Provider: Bibiana Morgan Attending Provider: Bibiana Morgan Primary Care Provider: MORGAN SCALES Hospital Course Hospital Course: Patient was admitted 02/24/2023 for scheduled repeat section with bilateral salpingectomy. She had an uncomplicated section for delivery of a viable male . She did have episode of nausea and dizziness which was related to her scopolamine patch. This did resolve after removal. Otherwise her postoperative course was appropriate and uncomplicated. She will be discharged home ambulating, tolerating regular diet and oral pain medication with stable vital signs. She will continue her labetalol, 100 mg daily at home Home Meds and New Rx's Prescriptions: New ibuprofen 600 mg tablet 600 mg PO Q8H PRNQty: 60 0RF oxycodone-acetaminophen [Percocet] 5-325 mg tablet 1 tab PO Q8H PRNQty: 7 0RF docusate sodium [Colace] 100 mg capsule 100 mg PO BID Qty: 30 0RF Continued prenat.vits,mariah,mdh-rkyl-kulpm Tablet 1 tab PO DAILY calcium carbonate [Tums] 300 mg (750 mg) tablet,chewable 300 mg PO TID PRN famotidine [Pepcid AC Maximum Strength] 20 mg tablet 20 mg PO DAILY labetalol 100 mg tablet 100 mg PO HS Discontinued aspirin [Adult Aspirin Regimen] 81 mg tablet,delayed release (DR/EC) 81 mg PO DAILY Patient Comments: 08/27/22- pt reports taking 81 mg alternating with 162 mg every other day. Discharge Instructions Stand Alone Forms: BC Instructions, BC Discharge Instruc Activity:: Pelvic rest, no heavy lif Equipment/Supplies:: No Equipment Needed Diet:: As Tolerated OB:DS Summary Contraception Discussed Contraception Discussed: Yes Contraceptive Plan: Tubal Ligation, [place] Infant Gender-Baby A: Male weight: 7 lb 13.046 oz Status at Discharge Functional status at discharge: independent ambulation Overall status at discharge: patient is progressing back to baseline Mental Status: mental status grossly normal Speech and Movement: speech and movement normal Mood: congruent mood Affect: normal affect Exam Physical Exam Vital signs: Temp Pulse Resp BP Pulse Ox 97.7 F 103 H 18 114/77 97 02/26/23 04:00 02/26/23 04:00 02/24/23 20:00 02/26/23 04:00 02/25/23 23:06 Narrative: See physical exam from progress note dated 02/26/2023 [facility] All Active Problems (Updated 02/24/23 @ 08:53 by Mickie Patrick DO) Status post repeat low transverse section (Acute) Repeat low-transverse section with bilateral salpingectomy 02/24/2023 Anxiety (Chronic) Benign positional vertigo (Acute) Chronic sinusitis (Acute) BMI 26.0-26.9,adult (Acute) (Acute) Previous section (Chronic) Fibroid uterus (Acute) Depression (Chronic) Essential hypertension (Acute) Rh negative state in antepartum period (Acute) Acute adjustment disorder with mixed anxiety and depressed mood (Acute) HTN (hypertension) (Chronic) Positive test (Acute) Rh negative status during (Acute) Chronic hypertension affecting (Acute) Medical History (Updated 02/24/23 @ 08:53 by Mickie Patrick DO) Acne URI (upper respiratory infection) Uterine perforation by intrauterine contraceptive device Surgical History (Updated 02/24/23 @ 08:52 by Mickie Patrick DO) section (09/14/14) PC/S for arrest of dilation/descent at 7cm. M. Molina. 6lb 2 oz. L ovarian cystectomy for suspected endometrioma. 07/16/16 Elective RC/Dain Gonzalez. aoc Status post laparotomy 06/14/2019. After preparation of uterus with hysteroscopic removal of retained IUD arms. Hysterotomy repaired. Family History (Updated 08/12/22 @ 14:32 by Shanti Cook CNM) Mother Essential hypertension Hyperlipidemia Mental disorder Diabetes Father Essential hypertension Sister Alcohol abuse Essential hypertension Mental disorder Preeclampsia Brother Substance abuse Social History Smoking/Tobacco Use Status: Former Tobacco Use Quit Date: 08/16/08 Smoking risk assessment performed?: Yes Alcohol Intake: never Drug use: Never Substance use type: does not use Household members: spouse, children and other Details: Elizabet Employed at [employer] Housing: house Number of Children: 2 Do you feel safe at home: Yes Do you feel safe in your relationship?: Yes Female Reproductive History Menstrual control method: copper IUCD History History 3 Para 2 Hx # Term Pregnancies 2 Multiple births Hx # Pregnancies Ectopic pregnancies AB induced Hx Number of Living Children AB spontaneous Past Pregnancies Del. Date GA/Weeks # Preg Succ Route Wgt Sex Labor Lgth Anesthesia Location Prov Complic 09/14/14 40 No Yes 6 lb 13 oz Male 07/20/16 39 No Yes 6 lb 11 oz Male [place] Delivery Date: 09/14/14 Last Updated by: Shanti Cook CNM for FTP at 7 cms. Molina. Autism spectrum disorder Delivery Date: 07/20/16 Last Updated by: Shanti Cook CNM Carlos schedule . Chiari Malformation DS: Data Vitals/I&O Vitals and I&O: Vital Signs Temperature 97.7 F 02/26/23 04:00 Temperature Source Oral 02/26/23 04:00 Pulse 103 H 02/26/23 04:00 Pulse Rhythm Regular 02/25/23 23:06 Respiratory Rate 18 02/24/23 20:00 Respiratory Depth Normal 02/25/23 23:06 Blood Pressure 114/77 02/26/23 04:00 Blood Pressure Mean 89 02/26/23 04:00 Pulse Oximetry 97 02/25/23 23:06 Oxygen Delivery Method Room Air 02/24/23 09:02 Pain Level 2 02/26/23 04:18 Intake & Output 02/25/23 02/25/23 02/26/23 11:59 23:59 11:59 Output Total 1700 / 2300 600 / 2300 Balance -1700 / -2300 -600 / -2300 Output: Urine 1700 / 2300 600 / 2300 Other: Urine Color Yellow Yellow Urine Appearance Clear
[2023-02-26 08:15] VITALS: BP 131/81; PULSE 90; RESP 14; TEMP 36.8
== END 2023-02-26 14:30 | disposition home or self-care (01) | DRG 784 ==
PROVIDERS: Obstetrics & Gynecology; Admitting Provider Obstetrics & Gynecology; PCP Nurse Practitioner Family; Visit Provider Obstetrics & Gynecology
PROC: 10D00Z1 Extraction of Products of Conception, Low, Open Approach (ICD-10-PCS; CPT 59514; principal; 2023-02-24 07:30)
DX: O34.211 Maternal care for low transverse scar from previous cesarean delivery (principal); O10.02 Pre-existing essential hypertension complicating childbirth; O36.0930 Maternal care for other rhesus isoimmunization, third trimester, not applicable or unspecified; N85.8 Other specified noninflammatory disorders of uterus; Z37.0 Single live birth; Z30.2 Encounter for sterilization; O34.13 Maternal care for benign tumor of corpus uteri, third trimester; D25.9 Leiomyoma of uterus, unspecified; O99.344 Other mental disorders complicating childbirth; F41.8 Other specified anxiety disorders; Z3A.39 39 weeks gestation of pregnancy
CPT/HCPCS: 59514; 58700; 36415; 85025; 88302; J0456; J0690; J1885; J2310; J2371; J2405; J2765; J3010

== ENCOUNTER 2024-09-07 10:11 | Outpatient (REF) | payer BC, SELFPAY ==
--- OUTSIDE RECORDS SUMMARY | 2024-09-07 10:13 | XMS_ITS | Clinical Summary ---
Author Organization [facility] Address [address] [place] [address] Care Team Providers Care Vat House Laborer Name Role Phone Sherry Victoria AUTOMOBILE UPHOLSTERER APPRENTICE Primary Care Provider [phone] Social History Tobacco Use Types Packs/Day Years Used Date Smoking Tobacco: Never Assessed Interpersonal Safety Answer Date Record ed Physically Hurt Never 03/17/2020 Verbally Threaten Not on file 03/17/2020 Comments Unknown Sex and Gender Information Value Date Recorded Sex Assigned at Not on file Legal Sex Female 18:28 EST Gender Identity Not on file Sexual Orientation Not on file Plan of Treatment Health Maintenance Due Date Last Done Comments Hepatitis B Vaccine (1 of 3 - 19+ 3-dose series) 06/10 COVID-19 Vaccine ( season) 2024 Hepatitis C Screen Completed 08/12/2022 Procedures Procedure Name Priority Date/Time Associated Diagnosis Comments HEPATITIS C AB W REFLEX TO HCV RNA BY PCR Routine 08/12/2022 15:50 EST from Last 3 Months or Most Recently Relevant to Health Maintenance Results * HEPATITIS C AB W REFLEX TO HCV RNA BY PCR (08/12/2022 15:50 EST) Hep C Antibody Negative Negative 08/14/2022 10:09 EST [facility] Blood VENOUS BLOOD / Unknown 08/12/2022 15:50 EST 08/13/2022 17:24 EST us Provider Outr Resulting Lab CHEMISTRY & BLOOD GA S ORDERABLES Final Result [facility] [address] [place] [address] from Last 3 Months or Most Recently Relevant to Health Maintenance Insurance [facility] O[facility] Care Teams Vat House Laborer Relationship Specialty Start Date End Date [place] [address] [place] [address] PCP - General 07/16/22
--- OUTSIDE RECORDS SUMMARY | 2024-09-07 10:13 | XMS_ITS | Referral Summary ---
Author Organization [facility] Address [address] [place] [address] Care Team Providers Care Glassworker Name Role Phone Sherry Victoria NP Primary Care Provider [phone] Social History Tobacco Use Types Packs/Day Years Used Date Smoking Tobacco: Never Assessed Interpersonal Safety Answer Date Record ed Physically Hurt Never 03/17/2020 Verbally Threaten Not on file 03/17/2020 Comments Unknown Sex and Gender Information Value Date Recorded Sex Assigned at Not on file Legal Sex Female 18:28 EST Gender Identity Not on file Sexual Orientation Not on file Plan of Treatment Not on file Procedures Procedure Name Priority Date/Time Associated Diagnosis Comments HEPATITIS C AB W REFLEX TO HCV RNA BY PCR Routine 08/12/2022 15:50 EST from Last 3 Months or Most Recently Relevant to Health Maintenance Results * HEPATITIS C AB W REFLEX TO HCV RNA BY PCR (08/12/2022 15:50 EST) Hep C Antibody Negative Negative 08/14/2022 10:09 EST [facility] Blood VENOUS BLOOD / Unknown 08/12/2022 15:50 EST 08/13/2022 17:24 EST us Provider Outr Resulting Lab CHEMISTRY & BLOOD GA S ORDERABLES Final Result [facility] [address] [place] [address] from Last 3 Months or Most Recently Relevant to Health Maintenance Insurance [facility] OOS Care Teams Glassworker Relationship Specialty Start Date End Date Sherry Victoria NP [facility] [address] [place] [address] PCP - General 07/16/22
--- OUTSIDE RECORDS SUMMARY | 2024-09-07 10:14 | XMS_ITS | Encounter Summary ---
Author Organization [facility] Address [address] [place] [address] Care Team Providers Care Pediatric Neuropsychologist Name Role Phone Chase Umana MD Primary Care Provider [phone] Encounter Details Date Type Department Care Team (Late st Contact Info) Description 06/14/2019 9:42 EDT Hospital Encounter [address] [address] Unknown, Provider, Social History Tobacco Use Types Packs/Day Years Used Date Smoking Tobacco: Never Assessed Interpersonal Safety Answer Date Record ed Physically Hurt Never 03/17/2020 Verbally Threaten Not on file 03/17/2020 Comments Unknown Sex and Gender Information Value Date Recorded Sex Assigned at Not on file Legal Sex Female 18:28 EST Gender Identity Not on file Sexual Orientation Not on file documented as of this encounter Plan of Treatment Not on file documented as of this encounter Visit Diagnoses Not on filedocumented in this encounter Care Teams Pediatric Neuropsychologist Relationship Specialty Start Date End Date Chase Umana MD [address] [place] [address] [place] [address] PCP - General 09/18/14 07/15/22 documented as of this encounter
--- OUTSIDE RECORDS SUMMARY | 2024-09-07 10:14 | XMS_ITS | Encounter Summary ---
Author Organization [facility] Address [address] [place] [address] Care Team Providers Care Vehicle Upholsterer Name Role Phone Sherry Victoria NP Primary Care Provider [phone] Encounter Details Date Type Department Care Team (Late st Contact Info) Description 08/14/2022 Lab Requisition [facility] - [facility] [address] [place] [address] [id number] Encounter for other general examination Social History Tobacco Use Types Packs/Day Years [...] on file documented as of this encounter Procedures Procedure Name Priority Date/Time Associated Diagnosis Comments PAP TEST Today 08/12/2022 14:30 EST Encounter for other general examination HPV DNA DETECTION WITH GENOTYPING, PCR Today 08/12/2022 14:30 EST Encounter for other general examination documented in this encounter Results * HUMAN PAPILLOMAVIRUS (HPV) DETECTION-HIGH RISK TYPES (08/12/2022 14:30 EST) HPV other High Risk types, PCR Negative Negative 08/27/2022 15:13 [facility] Comment:No E6 or E7 mRNA is detected from HPV types 16,18,31,33,35,39,45,51,52,56,58,59,66, and 68 by invoice coder mediated amplification. Papanicolaou smear specimen (specimen) CERVIX UTERI STRUCTURE / Unknown 08/12/2022 14:30 EST 08/26/2022 13:46 EST us Shantimaría Kendalloskar CN MICROBIOLOGY - GENERAL ORDERABLES Final Result [facility] [address] [place] [address] * PAP TEST (08/12/2022 14:30 EST) Specimens A. Cervix and/or Endocervix , ThinPrep Imaging System with Manual Evaluation 3 15:13 [facility] Specimen Adequacy Satisfactory for Evaluation - transformation zone component present 3 15:13 [facility] General Categorization Epithelial Cell Abnormality 3 15:13 [facility] Descriptive Diagnosis Squamous Cell Abnormality - Atypical squamous cells, undetermined significance (ASC-US). 3 15:13 [facility] Diagnosis Comment Chicken Tender slides of this case were reviewed at the intradepartmental consultation conference. 3 15:13 [facility] Educational Comments [facility] recommends following the ASCCP's management guidelines which may be found at www.asccp.org 3 15:13 [facility] Attestation By the signature below, the attending physician certifies that they have personally conducted a gross and/or microscopic examination of the described specimens and rendered or confirmed the above diagnosis. 3 15:13 [facility] at 1513 Clinical History See below 08/27/19 2 3 15:13 [facility] HPV The result for the Human Papillomavirus (HPV) Detection-High Risk Types is Negative. No E6 or E7 mRNA is detected from HPV types 16,18,31,33,35,39,4 5,51,52,56,58,59,66 , and 68 by invoice coder mediated amplification.Testi ng was performed on specimen [id number] and was resulted on 08/27/2022 1513 EST by REBECCA, LAB INSTRUMENT RESULTS IN 3 15:13 EST [facility] Performing Lab [facility] 3 15:13 EST [facility] Scanned Images 3 15:13 EST [facility] Papanicolaou smear specimen (specimen) CERVIX UTERI STRUCTURE / Unknown 08/12/2022 14:30 EST 08/14/2022 10:05 EST Shanti Cook [facility] PATH[facility] ORDERABLES F inal Result Performing Organization Address City/State/[facility] Co de Phone Number [facility] [address] [place] [address] documented in this encounter Visit Diagnoses Diagnosis Encounter for other general examination documented in this encounter Care Teams Vehicle Upholsterer Relationship Specialty Start Date End Date Sherry [place] [address] [place] [address] PCP - General 07/16/22 documented as of this encounter
--- OUTSIDE RECORDS SUMMARY | 2024-09-07 10:14 | XMS_ITS | Encounter Summary ---
Author Organization [facility] Address [facility] [place] [address] Care Team Providers Care Handyman Name Role Phone YamilkaSherry paul DANI Primary Care Provider [phone] Reason for Visit * Consultation (Routine) - Closed Specialty Diagnoses / Procedures Referred By Contac t Referred To Contact Obstetrics and Gynecology Diagnoses , unspecified gestational age Multigravida of advanced maternal age, first trimester Previous section Uterine leiomyoma, unspecified location Shanti Cook, OSVALDO [address] [place] [address] [address] [place] [address] [facility] [address] [place] [address] Referral ID Status Reason Start Date Expiration Date V isits Requested Visits Authorized [id number] Closed Consult, Test & Treat PCP Updated and/or Approved 08/13/2022 08/13/2023 6 6 Encounter Details Date Type Department Care Team (Late st Contact Info) Description 10/23/2022 10:00 AM EST Office Visit Obstetrics [place] [address] Meredith Gonzalez MD [facility] [address] OBSTETRICS [place] [address] Multigravida of advanced maternal age in second trimester Social History Tobacco Use Types Packs/Day Years Used Date Smoking Tobacco: Former Cigarettes Q uit: 2008 Smokeless Tobacco: Never Alcohol Use Standard Drinks/Week Comments Not Currently 0 (1 standard drink = 0.6 oz pur e alcohol) Comments Yes Sex and Gender Information Value Date Recorded Sex Assigned at Not on file Gender Identity Not on file Sexual Orientation Not on file documented as of this encounter Last Filed Vital Signs Vital Sign Reading Time Taken Comments Blood Pressure 130/60 10/23/2022 11:07 AM EST Pulse 81 10/23/2022 11:07 AM EST Temperature - - Respiratory Rate - - Oxygen Saturation 99% 10/23/2022 11: 07 AM EST Inhaled Oxygen Concentration - - Weight 73.3 kg (161 lb 11.2 oz) 023 11:07 AM EST Height - - Body Mass Index - - documented in this encounter Progress Notes * Meredith Gonzalez MD - 10/23/2022 10:00 AM EST Diagnosis/Maternal Medicine Consult Note Jeana Rodriguez is a 37 y.o. year old female who is at 22w0d gestation. She is seen in consultation at the request of Shanti Cook CNM for evaluation of placenta location. She was seen today for maternal- medicine consultation and ultrasound evaluation. She reports having had low risk cell free DNA screening Review of Systems Constitutional:feels well Movement: normal Contractions: none Leaking: None Bleeding: None Patient Active Problem List Diagnosis Date Noted ??? History of 2 sections 10/23/2022 ??? AMA (advanced maternal age) multigravida 35+ 10/23/2022 ??? Hypertension 10/23/2022 Past Medical History: Diagnosis Date ??? Hypertension Labetalol, bASA Past Surgical History: Procedure Laterality Date ??? SECTION ??? SECTION ??? LAPAROTOMY 2018 hysterotomy for retained IUD fragment Family History Problem Relation Age of Onset ??? Hypertension Mother ??? Type 2 Diabetes Mother ??? Hypertension Father Social History Occupational History ??? Not on file Tobacco Use ??? Smoking status: Former Types: Cigarettes Quit date: 2008 Years since quittin.1 ??? Smokeless tobacco: Never Vaping Use ??? Vaping Use: Never used Substance and Sexual Activity ??? Alcohol use: Not Currently ??? Drug use: Never ??? Sexual activity: Not on file OB History 3 Para 2 Term 2 AB Living 2 SAB IAB Ectopic Multiple Live Births 2 # Outc Date GA Lbr Ash/2nd Wgt Sex Del Anes PTL Lv 1 Term 2014 41w0d 3.033 kg (6 lb 11 oz) M C-S scar Living Complications: Failure to Progress in First Stage 2 Term 2015 39w0d 3.062 kg (6 lb 12 oz) M C-S scar Living 3 Current Current Outpatient Medications Medication Sig Dispense Refill ??? labetaloL (Normodyne) 100 mg Tablet Take 100 mg by mouth daily. ??? PNV no.95/ferrous fum/folic ac ( ORAL) Take by mouth. ??? aspirin EC 81 mg Tablet, Delayed Release (E.C.) Take 81 mg by mouth daily. No current facility-administered medications for this visit. Allergies Allergen Reactions ??? Grass Pollen-Neto, Standard Ultrasound Date: 10/23/2022 Amniotic fluid volume normal Presentation cephalic Placenta posterior Growth appropriate for gestational age 520gm anatomy unremarkable except for right urinary tract dilation 5.1mm Physical Exam BP 130/60 Pulse 81 Wt 73.3 kg (161 lb 11.2 oz) SpO2 99% General: alert, well appearing, in no apparent distress HEENT: normocephalic, atraumatic Abdomen: Soft, nontender Neurologic:alert, oriented, normal speech, no focal findings or movement disorder noted Psychiatric: Affect is Appropriate. Assessment and Recommendations: 37 y.o. year old female at 22w0d weeks gestation, referred for counseling regarding placenta location. I spent 60 minutes in face to face time with the patient of which 80% was in direct counseling, and a total of 15 minutes in patient care reviewing records and discussing her with other [facility] sultants. We reviewed the ultrasound findings and limitations of ultrasound in detecting anomalies and aneuploidy. The growth, fluid, placenta and anatomy appear unremarkable except for right urinary tract dilation 5.1mm and an intraabdominal echogenic calcification seen on the left under the diaphragm. We reviewed the possible association with urinary tract dilation including variant of normal, structural anomaly, urinary reflux, and aneuploidy. We reviewed the association between intraabdominal calcifications and aneuploidy, congenital infections, and cystic fibrosis. 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 There are no other features to suggest congenital infection such as CMV. Additionally, she has no specific risk factors for CMV. We reviewed the options and limitations testing maternal CMV IgG and IgM and she declined. She has chronic hypertension which is controlled on Labetalol. She is taking bASA. I recommend assessment of growth in th third trimester and testing after 32 weeks. I recommend consideration of delivery between 38-39 weeks. There is no evidence of abnormal placentation on today's ultrasound related to her prior cesareans or hysterotomy. I recommend a follow up ultrasound to reassess the growth, kidney and calcification at ~ 32 weeks. I appreciate the opportunity to be involved in this patients care, and am available if further questions should arise. MEREDITH GONZALEZ MD 10/23/2022 Cc: Shanti Cook, ROSSANA [address] [place] [address] , with copy of ultrasound report documented in this encounter Plan of Treatment Not on file documented as of this encounter Results * US OB Follow Up (01/01/2023 2:59 PM EDT) Anatomical Region Laterality Modality Pelvis, Abdomen Ultrasound 01/01/2023 2:33 PM EDT Impressions 01/01/2023 3:14 PM EDT 3rd Trimester Summary Single intrauterine with a gestational age of 32w 0d based on Clinical PAULINA Composite age based on the current ultrasound alone is 33w 2d. Estimated weight corresponds to the 83th percentile for 32w 0d. Current growth parameters are consistent with prior dating indicating normal growth. Amniotic fluid volume is Normal Anatomical survey is limited due to the late gestational age. Two calcifications are seen superior to stomach and inferior to hemidiaphragm Thank you for letting us participate in the care of this patient. If you are a health care provider and have any questions regarding this report, please contact the number above. For patients who have questions, please contact the health medicare sales executive that requested your imaging first. ?Meredith Gonzalez, Staff Physician Electronically Signed Final Report ?? 01/01/2023 03:14 pm Narrative 01/01/2023 3:14 PM EDT OBSTETRICS REPORT ?(Signed Final 01/01/2023 03:14 pm) PATIENT INFO: ID #: ? [id number] ?: ??[birth year] (37 yrs)(F) Name: ? JEANA RUMERY ? Visit Date: 01/01/2023 02:33 pm PERFORMED BY: Performed By: ? Galilea Fenton RDMS Attending: ?Terrell PRITCHARD, Meredith Gonzales Referred By: ?MEREDITH GONZALEZ Location: ? [place] SERVICE(S) PROVIDED: UOBFOL - Efw - Growth ??- Rivera - [id number] INDICATIONS: 32 weeks gestation of ?Z3A.32 growth, kidneys, echogenic area in abdomen VITAL SIGNS: Height: ?5'6 EVALUATION: Num Of Fetuses: ? 1 Heart Rate(bpm): ??157 Cardiac Activity: ? Observed, normal rhythm Presentation: ? Cephalic Placenta: ? Posterior P. Cord Insertion: ?Within Normal Limits Amniotic Fluid JANICE FV: ?Normal JANICE Sum(cm) ? Largest Pocket(cm) 14.1 ?4.9 RUQ(cm) ? RLQ(cm) ? LUQ(cm) ?LLQ(cm) 4.1 ? 4.1 ? 4.9 ?1.0 --------- BIOMETRY: --------- BPD: ?81.5 ??mm ? G.Age: ?? 32w 5d ?64 ??% OFD: ? 115.5 ??mm HC: ?314.9 ??mm ? G.Age: ?? 35w 2d ?92 ??% AC: ?284.5 ??mm ? G.Age: ?? 32w 3d ?63 ??% FL: ? 63.2 ??mm ? G.Age: ?? 32w 5d ?56 ??% HUM: ?55.7 ??mm ? G.Age: ?? 32w 3d ?58 ??% CER: ?40.8 ??mm ? G.Age: ?? 34w 6d ?84 ??% LV: ?7.5 ??mm CM: ?4.9 ??mm CI: ?70.6 ??% ? 70 - 86 FL/HC: ? 20.1 ??% ? 19.1 - 21.3 HC/AC: ? 1.11 ?0.96 - 1.17 FL/BPD: ?77.5 ??% ? 71 - 87 FL/AC: ? 22.2 ??% ? 20 - 24 Est. FW: ?2063 ??gm ?4 lb 9 oz ?83 ??% OB HISTORY: : ?3 ? Term: ?? 2 GESTATIONAL AGE: Clinical PAULINA: ??32w 0d ?PAULINA: ?? 02/26/23 U/S Today: ? 33w 2d ?PAULINA: ?? 02/17/23 Best: ?32w 0d ?? Det. By: ??Clinical PAULINA ? PAULINA: ?? 02/26/23 -------- ANATOMY: -------- Cranium: ? Visualized Cavum: ? Visualized Ventricles: ?Visualized Choroid Plexus: ?Visualized Cerebellum: ?Visualized Posterior Fossa: ? Visualized Nuchal Fold: ? Not evaluated at this gestational age Face: ?Limited views Heart: ? 4-chamber view appears normal RVOT: ?Visualized LVOT: ?Visualized Diaphragm: ? Visualized Stomach: ? Visualized Abdomen: ? Within Normal Limits Abdominal Wall: ?Not seen due to late gestational age Cord Vessels: ?3-vessels- WNL Kidneys: ? Visualized Bladder: ? Visualized Spine: ? Limited views Upper Extremities: ? Limited views Lower Extremities: ? Limited views Other: ??Two calcifications seen superior to stomach ? and inferior to hemidiaphragm CERVIX UTERUS ADNEXA: Right Ovary Not visualized Left Ovary Not visualized Procedure Note Meredith Gonzalez MD - 01/01/2023 OBSTETRICS REPORT (Signed Final 01/01/2023 03:14 pm) PATIENT INFO: ID #: [id number] : [birth year] (37 yrs)(F) Name: JEANA RODRIGUEZ Visit Date: 01/01/2023 02:33 pm PERFORMED BY: Performed By: Galilea Fenton RDMS Attending: Meredith Gonzalez MD Referred By: MEREDITH GONZALEZ Location: [place] SERVICE(S) PROVIDED: UOBFOL - Efw - Growth - Rivera - [id number] INDICATIONS: 32 weeks gestation of Z3A.32 growth, kidneys, echogenic area in abdomen VITAL SIGNS: Height: 5'6 EVALUATION: Num Of Fetuses: 1 Heart Rate(bpm): 157 Cardiac Activity: Observed, normal rhythm Presentation: Cephalic Placenta: Posterior P. Cord Insertion: Within Normal Limits Amniotic Fluid JANICE FV: Normal JANICE Sum(cm) Largest Pocket(cm) 14.1 4.9 RUQ(cm) RLQ(cm) LUQ(cm) LLQ(cm) 4.1 4.1 4.9 1.0 --------- BIOMETRY: --------- BPD: 81.5 mm G.Age: 32w 5d 64 % OFD: 115.5 mm HC: 314.9 mm G.Age: 35w 2d 92 % AC: 284.5 mm G.Age: 32w 3d 63 % FL: 63.2 mm G.Age: 32w 5d 56 % HUM: 55.7 mm G.Age: 32w 3d 58 % CER: 40.8 mm G.Age: 34w 6d 84 % LV: 7.5 mm CM: 4.9 mm CI: 70.6 % 70 - 86 FL/HC: 20.1 % 19.1 - 21.3 HC/AC: 1.11 0.96 - 1.17 FL/BPD: 77.5 % 71 - 87 FL/AC: 22.2 % 20 - 24 Est. FW: 2063 gm 4 lb 9 oz 83 % OB HISTORY: : 3 Term: 2 GESTATIONAL AGE: Clinical PAULINA: 32w 0d PAULINA: 02/26/23 U/S Today: 33w 2d PAULINA: 02/17/23 Best: 32w 0d Det. By: Clinical PAULINA PAULINA: 02/26/23 -------- ANATOMY: -------- Cranium: Visualized Cavum: Visualized Ventricles: Visualized Choroid Plexus: Visualized Cerebellum: Visualized Posterior Fossa: Visualized Nuchal Fold: Not evaluated at this gestational age Face: Limited views Heart: 4-chamber view appears normal RVOT: Visualized LVOT: Visualized Diaphragm: Visualized Stomach: Visualized Abdomen: Within Normal Limits Abdominal Wall: Not seen due to late gestational age Cord Vessels: 3-vessels- WNL Kidneys: Visualized Bladder: Visualized Spine: Limited views Upper Extremities: Limited views Lower Extremities: Limited views Other: Two calcifications seen superior to stomach and inferior to hemidiaphragm CERVIX UTERUS ADNEXA: Right Ovary Not visualized Left Ovary Not visualized IMPRESSION 3rd Trimester Summary Single intrauterine with a gestational age of 32w 0d based on Clinical PAULINA Composite age based on the current ultrasound alone is 33w 2d. Estimated weight corresponds to the 83th percentile for 32w 0d. Current growth parameters are consistent with prior dating indicating normal growth. Amniotic fluid volume is Normal Anatomical survey is limited due to the late gestational age. Two calcifications are seen superior to stomach and inferior to hemidiaphragm Thank you for letting us participate in the care of this patient. If you are a health care provider and have any questions regarding this report, please contact the number above. For patients who have questions, please contact the health medicare sales executive that requested your imaging first. Meredith Gonzalez, Staff Physician Electronically Signed Final Report 01/01/2023 03:14 pm Meredith Gonzalez MD IMG OB ORDERABL ES documented in this encounter Visit Diagnoses Diagnosis Multigravida of advanced maternal age in second trimester Multigravida of advanced maternal age in second trimester documented in this encounter Care Teams Handyman Relationship Specialty Start Date End Date Sherry Victoria, ENVIRONMENTAL JOURNALIST [address] [address] PCP - General Family Medicine 08/13/22 08/24/24 documented as of this encounter
--- OUTSIDE RECORDS SUMMARY | 2024-09-07 10:14 | XMS_ITS | Encounter Summary ---
Author Organization [facility] Address [facility] [place] [address] Care Team Providers Care Rug Drying Machine Operator Name Role Phone Sherry Victoria APRN Primary Care Provider [phone] Reason for Visit * Reason Comments Follow-up Encounter Details Date Type Department Care Team (Late st Contact Info) Description 01/01/2023 4:00 PM EDT Office Visit Obstetrics [place] [address] Meredith Gonzalez MD [facility] [address] OBSTET[place]ICS [place] [address] Multigravida of advanced maternal age in second [...] Sign Reading Time Taken Comments Blood Pressure 129/78 01/01/2023 3:26 PM EDT Pulse 92 01/01/2023 3:26 PM EDT Temperature 36.3 ??C (97.4 ??F) 01/01/2023 3:26 PM ED T Respiratory Rate 15 01/01/2023 3:26 PM EDT Oxygen Saturation 100% 01/01/2023 3:26 PM EDT Inhaled Oxygen Concentration - - Weight 75.9 kg (167 lb 4.8 oz) 01/01/2023 3:26 P M EDT Height - - Body Mass Index - - documented in this encounter Progress Notes * Meredith Gonzalez MD - 01/01/2023 4:00 PM EDT Gestational age: 32w0d, returns for follow-up ultrasound and limited MFM consult for urinary tract dilation and intraabdominal calcifications. Patient Active Problem List Diagnosis Date Noted ??? History of 2 sections 10/23/2022 ??? AMA (advanced maternal age) multigravida 35+ 10/23/2022 ??? Hypertension 10/23/2022 Resolved Hospital Problems No resolved problems to display. Ultrasound Date: 01/01/2023 Growth appropriate for gestational age Amniotic fluid volume normal Presentation cephalic Placenta posterior anatomy limited but normal kidneys. Persistent calcifications near stomach Physical Exam There were no vitals taken for this visit. BP 129/78 Pulse 92 Temp 36.3 ??C (97.4 ??F) Resp 15 Wt 75.9 kg (167 lb 4.8 oz) SpO2 100% General: alert, well appearing, in no apparent distress HEENT: normocephalic, atraumatic Abdomen: Gravid, soft, nontender Neurologic:alert, oriented, normal speech, no focal findings or movement disorder noted Psychiatric: Affect is Appropriate. Assessment and Recommendations: 37 y.o. year old female at 32w0d weeks gestation resolved UTD, persistent intraabdominal calcifications We reviewed the ultrasound in detail and the limitation sof ultrasound in detecting aneuploidy and anomalies.. The growth, fluid, placenta and anatomy appear unremarkable. The UTD has resolved. The intraabdominal calcifications persist but have not increased and there are no additional ultrasound findings to suggest a specific etiology. I recommend testing after 32 weeks and a follow up ultrasound at ~37 weeks locally to reassess growth given the CHTN on medications. I recommend delivery 38- 39 weeks for CHTN. I appreciate the opportunity to be involved in this patients care, and am available if further questions should arise. MEREDITH GONZALEZ MD 01/01/2023 Cc: Meredith Gonzalez, with copy of ultrasound report documented in this encounter Plan of Treatment Not on file documented as of this encounter Visit Diagnoses Diagnosis Multigravida of advanced maternal age in second trimester documented in this encounter Care Teams Rug Drying Machine Operator Relationship Specialty Start Date End Date Sherry Victoria, QUICK SERVICE TECHNICIAN [address] [address] PCP - General Family Medicine 08/13/22 08/24/24 documented as of this encounter
--- OUTSIDE RECORDS SUMMARY | 2024-09-07 10:14 | XMS_ITS | Encounter Summary ---
Author Organization [facility] Address [facility] [place] [address] Care Team Providers Care Metal Spraying Machine Operator Name Role Phone Sherry Victoria APRN Primary Care Provider [phone] Reason for Referral * Diagnostic Test (Routine) - Closed Specialty Diagnoses / Procedures Referred By Contac t Referred To Contact Radiology Diagnoses Elderly multigravida with antepartum condition or complication Procedures US OB Detailed Morphology Shanti Cook CNM [address] [place] [address] [facility] [place] [address] Referral ID Status Reason Start Date Expiration Date V isits Requested Visits Authorized [id number] Closed Specialty Service Requested 08/20/2022 02/18/2024 1 1 Reason for Visit * Diagnostic Test (Routine) - Closed Specialty Diagnoses / Procedures Referred By Contac t Referred To Contact Radiology Diagnoses Elderly multigravida with antepartum condition or complication Procedures US OB Detailed Morphology Shanti Cook CNM [address] [address] [facility] [place] [address] Referral ID Status Reason Start Date Expiration Date V isits Requested Visits Authorized [id number] Closed Specialty Service Requested 08/20/2022 02/18/2024 1 1 Encounter Details Date Type Department Care Team (Latest Contact Info) Description 10/23/2022 9:00 AM EST - 10/23/2022 11:59 PM EST Hospital [place] [address] Shanti Cook, [address] [place] [address] Elderly multigravida with antepartum condition or complication Discharge Disposition: Home Social History Tobacco Use Types Packs/Day Years Used Date Smoking Tobacco: Former Cigarettes Q uit: 2007 Smokeless Tobacco: Never Alcohol Use Standard Drinks/Week Comments Not Currently 0 (1 standard drink = 0.6 oz pur e alcohol) Comments Yes Sex and Gender Information Value Date Recorded Sex Assigned at Not on file Gender Identity Not on file Sexual Orientation Not on file documented as of this encounter Medications at Time of Discharge Medication Sig Dispensed Refills Start Date End Date labetaloL (Normodyne) 100 mg tablet Take 100 mg by mouth daily. PNV no.95/ferrous fum/folic ac ( ORAL) Take by mouth. aspirin EC 81 mg EC (DR) tablet Take 81 mg by mouth daily. documented as of this encounter Plan of Treatment Not on file documented as of this encounter Procedures Procedure Name Priority Date/Time Associated Diagnosis Comments US OB DETAILED MORPHOLOGY Routine 10/23/2022 10:06 AM EST Elderly multigravida with antepartum condition or complication documented in this encounter Results * US OB Detailed Morphology (10/23/2022 10:06 AM EST) Anatomical Region Laterality Modality Pelvis, Abdomen Ultrasound 10/23/2022 10:0 4 AM EST Impressions 10/23/2022 11:08 AM EST 2nd Trimester - Detailed Morphology - Summary Single intrauterine with a gestational age of 22w 0d based on Clinical PAULINA Composite age based on the current ultrasound alone is 22w 2d. Current growth parameters are consistent with prior dating indicating normal growth. Amniotic fluid volume is Subjectively normal for gestational age Detailed anatomic evaluation was performed and right UTD is seen measuring 5 mm and calcification seen anterior to the stomach and just inferior to left hemidiaphragm. No other structural abnormalities are noted. Thank you for letting us participate in the care of this patient. If you are a health care provider and have any questions regarding this report, please contact the number above. For patients who have questions, please contact the health lawn care worker that requested your imaging first. ?Meredith Tejada, Staff Physician Electronically Signed Final Report ?? 10/23/2022 11:07 am Narrative 10/23/2022 11:08 AM EST OBSTETRICS REPORT ?(Signed Final 10/23/2022 11:07 am) PATIENT INFO: ID #: ? [id number] ?: ??[birth year] (37 yrs)(F) Name: ? JEANA RUMERY ? Visit Date: 10/23/2022 10:04 am PERFORMED BY: Performed By: ? Galilea Fenton RDMS Attending: ?Terrell PRITCHARD, Meredith Gonzales Referred By: ?SHANTI COOK Location: ? [place] SERVICE(S) PROVIDED: [facility] - Detailed Morphology - [id number] ? 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 BMI: ? 25.34 EVALUATION: Num Of Fetuses: ? 1 Cardiac Activity: ? Observed, normal rhythm Presentation: ? Cephalic Placenta: ? Posterior P. Cord Insertion: ?Within Normal Limits Amniotic Fluid JANICE FV: ?Subjectively normal for gestational age --------- BIOMETRY: --------- BPD: ?51.2 ??mm ? G.Age: ?? 21w 4d OFD: ?74.6 ??mm HC: ?202.5 ??mm ? G.Age: ?? 22w 3d AC: ?185.4 ??mm ? G.Age: ?? 23w 2d FL: ? 37.4 ??mm ? G.Age: ?? 21w 6d HUM: ?35.9 ??mm ? G.Age: ?? 22w 4d CER: ?22.7 ??mm ? G.Age: ?? 21w 2d NB: ?6.3 ??mm LV: ?7.0 ??mm CM: ?5.4 ??mm CI: ?68.6 ??% ? 70 - 86 FL/HC: ? 18.5 ??% ? 18.4 - 20.2 HC/AC: ? 1.09 ?1.06 - 1.25 FL/BPD: ?73.0 ??% ? 71 - 87 FL/AC: ? 20.2 ??% ? 20 - 24 Est. FW: ? 520 ??gm ?1 lb 2 oz OB HISTORY: : ?3 ? Term: ?? 2 GESTATIONAL AGE: Clinical PAULINA: ??22w 0d ?PAULINA: ?? 02/26/23 U/S Today: ? 22w 2d ?PAULINA: ?? 02/24/23 Best: ?22w 0d ?? Det. By: ??Clinical PAULINA ? PAULINA: ?? 02/26/23 TARGETED ANATOMY: Central Nervous System Calvarium/Cranial V.: ??Within Normal Limits Intracranial Gretchen: ? Within Normal Limits Cavum: ? Within Normal Limits Parenchyma: ?Within Normal Limits Lateral Ventricles: ?Within Normal Limits Choroid Plexus: ?Within Normal Limits Cereb./Vermis: ? Within Normal Limits Cisterna Magna: ?Within Normal Limits Midline Falx: ?Within Normal Limits Spine Cervical: ?Visualized Thoracic: ?Visualized Lumbar: ?Visualized Sacral: ?Visualized Shape/Curvature: ? Visualized Head/Neck Face: ?Within Normal Limits Lips: ?Within Normal Limits Neck: ?Within Normal Limits Nuchal Fold: ? Within Normal Limits Nasal Bone: ?Present Profile: ? Visualized Orbits/Eyes: ? Visualized Mandible: ?Visualized Maxilla: ? Visualized Thorax Thoracic Contour: ?Within Normal Limits Lungs: ? Visualized 4 Chamber View: ?Within Normal Limits Cardiac Activity: ?Normal Rhythm Rt Outflow Tract: ?Visualized Lt Outflow Tract: ?Visualized Aortic Arch: ? Visualized Ductal Arch: ? Visualized SVC: ? Visualized Cardiac [place]: ?Visualized Diaphragm: ? Visualized 3 Vessel View: ? Visualized 3 V Trachea View: ?Visualized IVC: ? Visualized Crossing: ?Visualized Abdomen Ventral Wall: ?Visualized Cord Insertion: ?Visualized Situs: ? Normal Stomach: ? Visualized Liver: ? Visualized Lt Kidney: ? Visualized Rt Kidney: ? UTD= 5 mm Bladder: ? Visualized Bowel: ? Visualized Extremities Lt Humerus: ?Within Nomal Limits Rt Humerus: ?Within Normal Limits Lt Forearm: ?Within Normal Limits Rt Forearm: ?Within Normal Limits Lt Hand: ? Within Normal Limits Rt Hand: ? Within Normal Limits Lt Femur: ?Within Normal Limits Rt Femur: ?Within Normal Limits Lt Lower Leg: ?Within Normal Limits Rt Lower Leg: ?Within Normal Limits Lt Foot: ? Visualized Rt Foot: ? Visualized Other Umbilical Cord: ?3 vessel cord Genitalia: ? Male Comment: ? Calcification anterior to the stomach and ?just inferior to left hemidiaphragm. CERVIX UTERUS ADNEXA: Right Ovary Size(cm) ? 3.4 ??x ?? 2.6 ?x ??1.5 ? Vol(ml): 6.9 Visualized Left Ovary Size(cm) ? 3.1 ??x ?? 2.0 ?x ??1.2 ? 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 Cord Insertion: Within Normal Limits Amniotic Fluid JANICE FV: Subjectively normal for gestational age --------- BIOMETRY: --------- BPD: 51.2 mm G.Age: 21w 4d OFD: 74.6 mm HC: 202.5 mm G.Age: 22w 3d AC: 185.4 mm G.Age: 23w 2d FL: 37.4 mm G.Age: 21w 6d HUM: 35.9 mm G.Age: 22w 4d CER: 22.7 mm G.Age: 21w 2d NB: 6.3 mm LV: 7.0 mm CM: 5.4 mm CI: 68.6 % 70 - 86 FL/HC: 18.5 % 18.4 - 20.2 HC/AC: 1.09 1.06 - 1.25 FL/BPD: 73.0 % 71 - 87 FL/AC: 20.2 % 20 - 24 Est. FW: 520 gm 1 lb 2 oz OB HISTORY: : 3 Term: 2 GESTATIONAL AGE: Clinical PAULINA: 22w 0d PAULINA: 02/26/23 U/S Today: 22w 2d PAULINA: 02/24/23 Best: 22w 0d Det. By: Clinical PAULINA PAULINA: 02/26/23 TARGETED ANATOMY: Central Nervous System Calvarium/Cranial V.: Within Normal Limits Intracranial Gretchen: Within Normal Limits Cavum: Within Normal Limits Parenchyma: Within Normal Limits Lateral Ventricles: Within Normal Limits Choroid Plexus: Within Normal Limits Cereb./Vermis: Within Normal Limits Cisterna Magna: Within Normal Limits Midline Falx: Within Normal Limits Spine Cervical: Visualized Thoracic: Visualized Lumbar: Visualized Sacral: Visualized Shape/Curvature: Visualized Head/Neck Face: Within Normal Limits Lips: Within Normal Limits Neck: Within Normal Limits Nuchal Fold: Within Normal Limits Nasal Bone: Present Profile: Visualized Orbits/Eyes: Visualized Mandible: Visualized Maxilla: Visualized Thorax Thoracic Contour: Within Normal Limits Lungs: Visualized 4 Chamber View: Within Normal Limits Cardiac Activity: Normal Rhythm Rt Outflow Tract: Visualized Lt Outflow Tract: Visualized Aortic Arch: Visualized Ductal Arch: Visualized SVC: Visualized Cardiac [place]: Visualized Diaphragm: Visualized 3 Vessel View: Visualized 3 V Trachea View: Visualized IVC: Visualized Crossing: Visualized Abdomen Ventral Wall: Visualized Cord Insertion: Visualized Situs: Normal Stomach: Visualized Liver: Visualized Lt Kidney: Visualized Rt Kidney: UTD= 5 mm Bladder: Visualized Bowel: Visualized Extremities Lt Humerus: Within Nomal Limits Rt Humerus: Within Normal Limits Lt Forearm: Within Normal Limits Rt Forearm: Within Normal Limits Lt Hand: Within Normal Limits Rt Hand: Within Normal Limits Lt Femur: Within Normal Limits Rt Femur: Within Normal Limits Lt Lower Leg: Within Normal Limits Rt Lower Leg: Within Normal Limits Lt Foot: Visualized Rt Foot: Visualized Other Umbilical Cord: 3 vessel cord Genitalia: Male Comment: Calcification anterior to the stomach and just inferior to left hemidiaphragm. CERVIX UTERUS ADNEXA: Right Ovary Size(cm) 3.4 x 2.6 x 1.5 Vol(ml): 6.9 Visualized Left Ovary Size(cm) 3.1 x 2.0 x 1.2 Vol(ml): 3.9 Visualized IMPRESSION 2nd Trimester - Detailed Morphology - Summary Single intrauterine with a gestational age of 22w 0d based on Clinical PAULINA Composite age based on the current ultrasound alone is 22w 2d. Current growth parameters are consistent with prior dating indicating normal growth. Amniotic fluid volume is Subjectively normal for gestational age Detailed anatomic evaluation was performed and right UTD is seen measuring 5 mm and calcification seen anterior to the stomach and just inferior to left hemidiaphragm. No other structural abnormalities are noted. Thank you for letting us participate in the care of this patient. If you are a health care provider and have any questions regarding this report, please contact the number above. For patients who have questions, please contact the health lawn care worker that requested your imaging first. Meredith Tejada, Staff Physician Electronically Signed Final Report 10/23/2022 11:07 am Shanti Kendalloskar CNM IMG US OB ORDERABLE S documented in this encounter Visit Diagnoses Diagnosis Elderly multigravida with antepartum condition or complication documented in this encounter Care Teams Metal Spraying Machine Operator Relationship Specialty Start Date End Date Sherry Victoria, D[address] [place] [address] PCP - General Family Medicine 08/13/22 08/24/24 documented as of this encounter
--- OUTSIDE RECORDS SUMMARY | 2024-09-07 10:14 | XMS_ITS | Encounter Summary ---
Author Organization [facility] Address [address] [place] [address] Care Team Providers Care Medicine Assistant Name Role Phone Chase Umana MD Primary Care Provider [phone] Encounter Details Date Type Department Care Team (Late st Contact Info) Description 06/06/2018 Results Only [facility] [phone] Sherry Sanchez, SHEFALI [address] [place] [address] [place], [place] [id number] Social History Tobacco Use Types Packs/Day Years Used Date Smoking Tobacco: Never Assessed Comments Unknown Sex and Gender Information Value Date Recorded Sex Assigned at Not on file Legal Sex Female 18:28 EST Gender Identity Not on file Sexual Orientation Not on file documented as of this encounter Plan of Treatment Not on file documented as of this encounter Procedures Procedure Name Priority Date/Time Associated Diagnosis Comments PAP TEST- RESULT ONLY Routine 06/06/2018 0:00 EDT documented in this encounter Results * PAP TEST- RESULT ONLY (06/06/2018 0:00 EDT) Pathology Report: CYTOPATHOLOGY REPORT Reports generated via electronic interface contain original data; however they are lacking the format of the original report. Caution should be taken when reading/interpreti ng unformatted reports. Name: ? WILLIAMS RODRIGUEZ ? Accession #: ? [id number] ? : ? 1985 (Age: 32) ??F ?Collect Date: ? 06/06/2018 ? Location: ? [facility] ? Receive Date: ? 06/07/2018 ? Provider: SHERRY SANCHEZ MANAGER FIXED INCOME Copy to: ? Final Report SPECIMEN ADEQUACY ? Satisfactory for Evaluation - transformation zone component present GENERAL CATEGORIZATION ? Negative for Intraepithelial Lesion or Malignancy INTERPRETATION ? Fungal organisms present morphologically consistent with Kayla species. Last Menstrual Period: 05/14/18 Hormonal/Contracep tive status: Intrauterine device: Copper Other: Additional clinical information: Z00.00 Z12.4 Z11.51 Specimen/Source: ??Pap Test, Cervix, ThinPrep Imaging System with manual evaluation Document reviewed and electronically signed by: ? JENNIFER Villarreal(ASCP) ? Report ??Date: 06/15/2018 14:45 HPV with Pap Test ? Date Ordered: ? 06/15/2018 ? Status: ?? Signed Out ?Date Complete: ? 06/16/2018 ? By: ??System Interface ? Date Reported: ? 06/16/2018 ? Interpretation RESULT: Negative for HPV. No E6 or E7 mRNA is detected from HPV types 16,18,31,33,35, 39,45,51,52,56,58, 59,66, and 68 by zigzag machine operator mediated amplification. Comments Document reviewed and electronically signed by: ? System Interface ? Report date: 06/16/2018 By the signature above, the attending physician certifies that he/she has personally conducted a gross and/or microscopic examination of the described specimens and rendered or confirmed the above diagnosis. End of Report [facility] 06/06/2018 06/07/2018 us Sherry Sanchez MANAGER FIXED INCOME PATHOLOGY ORDERABLES Final Res ult [facility] [address] [place] [address] documented in this encounter Visit Diagnoses Not on filedocumented in this encounter Care Teams Medicine Assistant Relationship Specialty Start Date End Date Chase Umana MD [address] [place] [address] [place] [id number] PCP - General 09/18/14 07/15/22 documented as of this encounter
--- OUTSIDE RECORDS SUMMARY | 2024-09-07 10:14 | XMS_ITS | Encounter Summary ---
Author Organization [facility] Address [address] [place] [address] Care Team Providers Care Rn Surgical Name Role Phone Sherry Victoria NP Primary Care Provider Encounter Details Date Type Department Care Team (Late st Contact Info) Description 02/24/2023 Lab Requisition [facility] Pathology & Laboratory Medicine - [facility] [address] [place] [address] Mickie Patrick [address] [place] [address] [place] [id number] Encounter for other general examination Social History [...] Procedure Name Priority Date/Time Associated Diagnosis Comments SURGICAL PATHOLOGY Today 02/24/2023 8: 12 EDT Encounter for other general examination documented in this encounter Results * SURGICAL PATHOLOGY (02/24/2023 8:12 EDT) Note to Patient The following pathology results have been interpreted by your pathologist and may be available to you before your health provider has had the opportunity to review them. Please allow time for your provider to receive these results and explore management options, if applicable. 03/01/2023 16:28 [facility] Final Diagnosis A. FALLOPIAN TUBE, LEFT, SALPINGECTOMY: - Fallopian tube with no specific pathologic features. B. FALLOPIAN TUBE, RIGHT, SALPINGECTOMY: - Fallopian tube with paratubal cyst. 03/01/2023 16:28 [facility] Attestation There was significant resident/fellow involvement in the diagnostic evaluation of this case. By the signature below, the attending physician certifies that they have personally conducted a gross and/or microscopic examination of the described specimens and rendered or confirmed the above diagnosis. 03/01/2023 16:28 [facility] at 1628 Clinical History Desired sterilization 03/01/2023 16:28 [facility] Gross Description A. Received in formalin labelled with proper patient identification (initials R, T) and left fallopian tube is a fallopian tube segment (8.0 cm in length and 0.5 cm in diameter). The serosal surface is purple. Sectioning reveals a central pinpoint lumen. Magician Helper sections are submitted to include two cross sections of tube and entire fimbriated end (perpendicularly sectioned) in A1-A2. B. Received in formalin labelled with proper patient identification (initials R, T) and right fallopian tube is a fallopian tube segment (6.0 cm in length and 0.4 cm in diameter). The serosal surface is purple with a clear fluid-filled cystic space (1.0 x 1.0 x 1.0 cm) near the fimbriated end. Sectioning reveals a central pinpoint lumen. Magician Helper sections are submitted to include two cross sections of tube and entire fimbriated end (perpendicularly sectioned) in B1-B2. HOLGER WILEY MD 02/25/2023 11:59 03/01/2023 16:28 [facility] Resident/Triston w: Holger Wiley MD 03/01/2023 16:28 [facility] Performing Lab [facility] 03/01/2023 16:28 [facility] Scanned Images 03/01/2023 16:28 [facility] Tissue ENTIRE FALLOPIAN TUBE / Unknown 02/24/2023 8:12 EDT 02/24/2023 17:24 EDT Tissue specimen (specimen) FALLOPIAN TUBE STRUCTURE / Unknown 02/24/2023 8:12 EDT 02/24/2023 17:24 EDT Mickie Patrick PATHOLOGY ORDERABLES Final Resul t [facility] [address] [place] [address] documented in this encounter Visit Diagnoses Diagnosis Encounter for other general examination documented in this encounter Care Teams Rn Surgical Relationship Specialty Start Date End Date Sherry Victoria NP [address] [place] [address] PCP - General 07/16/22 documented as of this encounter
--- OUTSIDE RECORDS SUMMARY | 2024-09-07 10:14 | XMS_ITS | Clinical Summary ---
Author Organization [facility] Address [facility] [place] [address] Care Team Providers Care Hydroelectric Plant Maintainer Name Role Phone Inactive, Pcp External Primary Care Provider Carolina vailable Allergies Active Allergy Reactions Criticality Noted Date Comments Grass Pollen-Orchardgrass, Standard 10/23/2022 Medications Medication Sig Dispensed Refills Start Date End Date Status labetaloL (Normodyne) 100 mg tablet Take 100 mg by mouth daily. Active PNV no.95/ferrous fum/folic ac ( ORAL) Take by mouth. Active aspirin EC 81 mg EC (DR) tablet Take 81 mg by mouth daily. Active Active Problems Problem Noted Date Diagnosed Date History of 2 sections 10/23/2022 AMA (advanced maternal age) multigravida 35+ 05/2023 Hypertension 10/23/2022 Family History Medical History Relation Comments Hypertension Father Hypertension Mother Type 2 Diabetes Mother Relation Status Comments Father Mother Social History Tobacco Use Types Packs/Day Years Used Date Smoking Tobacco: Former Cigarettes Q uit: 2007 Smokeless Tobacco: Never Alcohol Use Standard Drinks/Week Comments Not Currently 0 (1 standard drink = 0.6 oz pur e alcohol) Sex and Gender Information Value Date Recorded Sex Assigned at Not on file Gender Identity Not on file Sexual Orientation Not on file Last Filed Vital Signs Vital Sign Reading [...] - - Body Mass Index - - Plan of Treatment Health Maintenance Due Date Last Done Comments HIV screen 2005 Hepatitis C Screening 2005 Lipid Screening 2005 Hepatitis B vaccine (0-59 yrs) (1) 2006 Tetanus/Diphtheria/Pertussis Vaccines (1 - Tdap) 06/10 HPV test 2017 PAP Smear 2017 Covid-19 Vaccine (1 - season) 2024 Influenza (Flu) vaccine (1 o f 1 - Influenza standard series) 04/16/2024 Care Teams Hydroelectric Plant Maintainer Relationship Specialty Start Date End Date Inactive, Pcp External PCP - General 09/01/24
--- OUTSIDE RECORDS SUMMARY | 2024-09-07 10:14 | XMS_ITS | Encounter Summary ---
Author Organization [facility] Address [address] [place] [address] Care Team Providers Care Wood Heel Cementer Name Role Phone Unavailable Primary Care Provider Unavailabl e Encounter Details Date Type Department Care Team (Latest Contact Info) Description 09/13/2014 15:26 EST - 09/13/2014 23:59 EST Hospital Encounter [address] [address] Unknown, Provider, MD Discharge Disposition: Home or Self Care Social History Tobacco Use Types Packs/Day Years Used Date Smoking Tobacco: Never Assessed Comments Unknown Sex and Gender Information Value Date Recorded Sex Assigned at Not on file Legal Sex Female 18:28 EST Gender Identity Not on file Sexual Orientation Not on file documented as of this encounter Discharge Disposition Disposition Code Departure Means Destination Home or Self Alf documented in this encounter Plan of Treatment Not on file documented as of this encounter Visit Diagnoses Not on filedocumented in this encounter
--- OUTSIDE RECORDS SUMMARY | 2024-09-07 10:14 | XMS_ITS | Encounter Summary ---
Author Organization [facility] Address [facility] [place] [address] Care Team Providers Care Automatic Operator Name Role Phone ErinnSehrry lerma DANI Primary Care Provider [phone] Encounter Details Date Type Department Care Team (Latest Contact Info) Description 01/01/2023 2:03 PM EDT - 01/01/2023 11:59 PM EDT Hospital [place] [id number] Joyce Gonzalez MD [facility] [address] OBST[place] [address] Multigravida of advanced maternal age in second trimester Discharge Disposition: Home Social History Tobacco Use [...] Priority Date/Time Associated Diagnosis Comments US OB FOLLOW UP Routine 01/01/2023 2:59 PM EDT Multigravida of advanced maternal age in second trimester documented in this encounter Results * US OB Follow [...] who have questions, please contact the health primary care pediatrician that requested your imaging first. ?Joyce Gonzalez, Staff Physician Electronically Signed Final Report ?? 01/01/2023 03:14 pm Narrative 01/01/2023 3:14 PM EDT OBSTETRICS REPORT ?(Signed Final 01/01/2023 03:14 pm) PATIENT INFO: ID #: ? [id number] ?: ??[birth year] (37 yrs)(F) Name: ? WILLIAMS RUMERY ? Visit Date: 01/01/2023 02:33 pm PERFORMED BY: Performed By: ? Galilea Fenton RDMS Attending: ?Terrell PRITCHARD, Joyce A. Referred By: ?JOYCE GONZALEZ Location: ? [place] SERVICE(S) PROVIDED: UOBFOL - Efw - Growth ??- Rivera - [id number] INDICATIONS: 32 weeks gestation of ?Z3A.32 growth, [...] visualized Left Ovary Not visualized Procedure Note Joyce Gonzalez MD - 01/01/2023 OBSTETRICS REPORT (Signed Final 01/01/2023 03:14 pm) PATIENT INFO: ID #: [id number] : [birth year] (37 yrs)(F) Name: WILLIAMS RODRIGUEZ Visit Date: 01/01/2023 02:33 pm PERFORMED BY: Performed By: Galilea Fenton RDMS Attending: Joyce Gonzalez MD Referred By: JOYCE GONZALEZ Location: [place] SERVICE(S) PROVIDED: UOBFOL - w - Growth - [place] - [id number] INDICATIONS: 32 weeks gestation of Z3A.32 growth, [...] who have questions, please contact the health primary care pediatrician that requested your imaging first. Joyce Gonzalez, Staff Physician Electronically Signed Final Report 01/01/2023 03:14 pm Joyce Gonzalez MD IMG US OB ORDERABL ES documented in this encounter Visit Diagnoses Diagnosis Multigravida of advanced maternal age in second trimester documented in this encounter Care Teams Automatic Operator Relationship Specialty Start Date End Date Sherry Victoria, FEEDER SWITCHBOARD OPERATOR [address] [address] PCP - General Family Medicine 08/13/22 08/24/24 documented as of this encounter
--- OUTSIDE RECORDS SUMMARY | 2024-09-07 10:14 | XMS_ITS | Encounter Summary ---
Author Organization [facility] [place] [address] Care Team Providers Care News Clipping Cutter Name Role Phone Sherry Victoria APRN Primary Care Provider Encounter Details Date Type Department Care Team (Latest Contact Info) Description 01/01/2023 Travel Social History Tobacco Use Types Packs/Day Years [...] on filedocumented in this encounter Care Teams News Clipping Cutter Relationship Specialty Start Date End Date Sherry Victoria APRN [address] [place] [address] PCP - General Family Medicine 08/13/22 08/24/24 documented as of this encounter
--- OUTSIDE RECORDS SUMMARY | 2024-09-07 10:14 | XMS_ITS | Encounter Summary ---
Author Organization Health system Address [address] [place] [address] Care Team Providers Care Supervising Nurse Name Role Phone Unavailable Primary Care Provider Unavailabl e Encounter Details Date Type Department Care Team (Late st Contact Info) Description 09/14/2014 Results Only [facility]- [facility] [phone] Huey Hall MD [address] [place] [address] [address] [place], [place] [id number] Social History Tobacco Use Types Packs/Day Years [...] Priority Date/Time Associated Diagnosis Comments SURGICAL PATHOLOGY Routine 09/14/2014 10 :35 EST documented in this encounter Results * SURGICAL PATHOLOGY (09/14/2014 10:35 EST) Pathology Report: SURGICAL PATHOLOGY REPORT Reports generated via electronic interface contain original data; however they are lacking the format of the original report. Caution should be taken when reading/interpret ing unformatted reports. Name: ? WILLIAMS RODRIGUEZ ? Accession #: ? [id number] ? : ? 1985 (Age: 29) ??F ? Collect Date: ? 09/14/2014 ? Location: ? [facility] ? Receive Date: ? 09/14/2014 ? Provider: HUEY HALL MD Copy to: DO[address] BATCH TRUCKER ? Final Pathologic Diagnosis: OVARY, LEFT, SUBMITTED OVARIAN CYST ENDOMETRIOMA, EXCISION: - ??Endometriotic cyst (5.5 cm). - ??Serosal fibrovascular adhesions. Document reviewed and electronically signed by: FERN JONES MD Report ??Date: 09/20/2014 15:14 By the signature above, the attending physician certifies that he/she has personally conducted a gross and/or microscopic examination of the described specimens and rendered or confirmed the above diagnosis. Specimen(s) Received: Left ovarian cyst endometrioma Clinical History: Arrest of dilation, C/S Gross Description: ? Received in formalin labelled with proper patient identification (initials R, T) and left ovarian cyst endometrioma is previously disrupted cystic structure (5.5 x 3.7 x 1.0 cm). The outer surface is smooth, focally rough, and hemorrhagic. The cyst is uniloculated and contains clotted blood. The inner lining is smooth and focally thickened and edematous. The cyst wall is 0.1 cm in thickness. No residual normal ovary is identified. Product Safety Tester sections are submitted as [address] Alberto 09/17/2014 02:34 PM End of Report [facility] 09/14/2014 10:3 5 EST 09/14/2014 10:35 EST us Huey Hall MD PATHOLOGY ORDERABLES Final Res ult [facility] [address] [place] [address] documented in this encounter Visit Diagnoses Not on filedocumented in this encounter
--- OUTSIDE RECORDS SUMMARY | 2024-09-07 10:14 | XMS_ITS | Encounter Summary ---
Author Organization [facility] [place] [address] Care Team Providers Care Law Office Receptionist Name Role Phone Sherry Victoria APRN Primary Care Provider [phone] Encounter Details Date Type Department Care Team (Latest Contact Info) Description 10/23/2022 Travel Social History Tobacco Use Types Packs/Day [...] on filedocumented in this encounter Care Teams Law Office Receptionist Relationship Specialty Start Date End Date Sherry Victoria APRN [address] [place] [address] PCP - General Family Medicine 08/13/22 08/24/24 documented as of this encounter
--- OUTSIDE RECORDS SUMMARY | 2024-09-07 10:14 | XMS_ITS | Encounter Summary ---
Author Organization [facility] Address [address] [place] [address] Care Team Providers Care Casework Supervisor Name Role Phone Sherry Victoria NP Primary Care Provider [phone] Encounter Details Date Type Department Care Team (Late st Contact Info) Description 08/13/2022 Lab Requisition [facility] Pathology & Laboratory Medicine - [facility] [address] [place] [address] Outr Resulting Lab, Provider Social History Tobacco Use Types Packs/Day Years [...] Procedure Name Priority Date/Time Associated Diagnosis Comments CHLAMYDIA/N. GONORRHOEAE AMPLIFIED NUCLEIC ACID Routine 08/12/2022 14:30 EST documented in this encounter Results * CHLAMYDIA/N. GONORRHOEAE AMPLIFIED RNA (08/12/2022 14:30 EST) Neisseria gonorrhoeae Result Negative Negative 08/14/2022 13:15 EST [facility] Chlamydia trachomatis Result Negative Negative 08/14/2022 13:15 EST [facility] Swab ENTIRE ENDOCERVIX / Unknown 08/12/2022 14:30 EST 08/13/2022 20:24 EST us Provider Outr Resulting Lab MICROBIOLOGY - GENER AL ORDERABLES Final Result [facility] [address] [place] [address] documented in this encounter Visit Diagnoses Not on filedocumented in this encounter Care Teams Casework Supervisor Relationship Specialty Start Date End Date Sherry Victoria NP [facility] [address] [place] [address] PCP - General 07/16/22 documented as of this encounter
--- OUTSIDE RECORDS SUMMARY | 2024-09-07 10:14 | XMS_ITS | Encounter Summary ---
Author Organization [facility] Address [address] [place] [address] Care Team Providers Care Manugrapher Name Role Phone Sherry Victoria NP Primary Care Provider Encounter Details Date Type Department Care Team (Late st Contact Info) Description 08/13/2022 Lab Requisition [facility] Pathology & Laboratory Medicine - [facility] [address] [place] [address] Outr Resulting Lab, Provider Social History Tobacco [...] Procedure Name Priority Date/Time Associated Diagnosis Comments RUBELLA IGG ANTIBODY Routine 08/12/2022 15:50 EST VARICELLA IGG ANTIBODY Routine 08/12/2022 15:50 EST documented in this encounter Results * VARICELLA IGG ANTIBODY (08/12/2022 15:50 EST) Varicella IgG Ab Positive See Note 08/14/2022 10:58 EST [facility] Comment:Presence of detectab le Varicella Zoster virus IgG antibodies. Blood VENOUS BLOOD / Unknown 08/12/2022 15:50 EST 08/13/2022 17:24 EST us Provider Outr Resulting Lab IMMUNOLOGY AND SEROL OGY ORDERABLES Final Result Performing Organization Address [facility] Co de Phone Number [facility] [address] [place] [address] * RUBELLA IGG ANTIBODY (08/12/2022 15:50 EST) Rubella IgG Ab Positive See Note 08/14/2022 11:00 EST [facility] Comment:Positive for IgG ant ibodies to Rubella virus. Blood VENOUS BLOOD / Unknown 08/12/2022 15:50 EST 08/13/2022 17:24 EST us Provider Outr Resulting Lab CHEMISTRY & BLOOD GA S ORDERABLES Final Result Performing Organization Address [facility] de Phone Number [facility] [address] [place] [address] documented in this encounter Visit Diagnoses Not on filedocumented in this encounter Care Teams Manugrapher Relationship Specialty Start Date End Date Sherry Victoria NP [address] [facility] [place] [address] PCP - General 07/16/22 documented as of this encounter
--- OUTSIDE RECORDS SUMMARY | 2024-09-07 10:14 | XMS_ITS | Encounter Summary ---
Author Organization [facility] Address [address] [place] [address] Care Team Providers Care Food Service Helper Name Role Phone Sherry Victoria NP Primary Care Provider [phone] Encounter Details Date Type Department Care Team (Late st Contact Info) Description 08/13/2022 Lab Requisition [facility] Pathology & Laboratory Medicine - [facility] [address] [place] [address] Outr Resulting Lab, Provider Social History Tobacco [...] RNA BY PCR Routine 08/12/2022 15:50 EST HEPATITIS B SURFACE ANTIGEN Routine 08/12/2022 15:50 EST documented in this encounter Results * HEPATITIS B SURFACE ANTIGEN (08/12/2022 15:50 EST) Hep B Surface Ag Negative Negative 08/14/2022 10:30 EST [facility] Blood VENOUS BLOOD / Unknown 08/12/2022 15:50 EST 08/13/2022 17:24 EST us Provider Outr Resulting Lab CHEMISTRY & BLOOD GA S ORDERABLES Final Result Performing Organization Address City/[facility]/ZIP Co de Phone Number [facility] [address] [place] [address] * HEPATITIS C AB W REFLEX TO HCV RNA BY PCR (08/12/2022 15:50 EST) Hep C Antibody Negative Negative 08/14/2022 10:09 EST [facility] Blood VENOUS BLOOD / Unknown 08/12/2022 15:50 EST 08/13/2022 17:24 EST us Provider Outr Resulting Lab CHEMISTRY & BLOOD GA S ORDERABLES Final Result Performing Organization Address [facility] de Phone Number [facility] [address] [place] [address] documented in this encounter Visit Diagnoses Not on filedocumented in this encounter Care Teams Food Service Helper Relationship Specialty Start Date End Date Sherry Victoria NP [address] [facility] [place] [address] PCP - General 07/16/22 documented as of this encounter
--- OUTSIDE RECORDS SUMMARY | 2024-09-07 10:14 | XMS_ITS | Encounter Summary ---
Author Organization [facility] Address [address] [place] [address] Care Team Providers Care Barrel Repairer Name Role Phone Chase Umana MD Primary Care Provider [phone] Encounter Details Date Type Department Care Team (Late st Contact Info) Description 06/14/2019 Results Only [facility] [phone] Huey Hall MD [facility] [facility] [address] [place], [place] [id number] Social History Tobacco Use Types Packs/Day Years [...] Date/Time Associated Diagnosis Comments SURGICAL PATHOLOGY Routine 06/14/2019 22 :00 EDT documented in this encounter Results * SURGICAL PATHOLOGY (06/14/2019 22:00 EDT) Pathology Report: SURGICAL PATHOLOGY REPORT Reports generated via electronic interface contain original data; however they are lacking the format of the original report. Caution should be taken when reading/interpret ing unformatted reports. Name: ? WILLIAMS RODRIGUEZ ? Accession #: ? [id number] ? : ? 1985 (Age: 34) ??F ? Collect Date: ? 06/14/2019 ? Location: ? [facility] ? Receive Date: ? 06/14/2019 ? Provider: HUEY HALL MD Copy to: RORY SANCHEZ GAS TORCH BRAZIER ? Final Pathologic Diagnosis: POLYPS, UTERUS: - Scanty fragments of adipose tissue. - Endometrial tissue is not present. Document reviewed and electronically signed by: DENIA THOMSON MD Report ??Date: 06/15/2019 14:58 By the signature above, the attending physician certifies that he/she has personally conducted a gross and/or microscopic examination of the described specimens and rendered or confirmed the above diagnosis. Specimen(s) Received: Uterine polyps Clinical History: Retained IUD arm Gross Description: ? Received in formalin labelled with proper patient identification (initials R, T) and uterine polyps are two yellow-white tissues (0.3 x 0.2 x 0.2 cm and 0.4 x 0.2 x 0.2 cm). Entirely submitted in 1. MARIA ISABEL Bello (ASCP) 06/15/2019 7:38 AM End of Report [facility] 06/14/2019 22:0 0 EDT 06/14/2019 22:00 EDT us Huey Hall MD PATHOLOGY ORDERABLES Final Res ult [facility] [address] [place] [address] documented in this encounter Visit Diagnoses Not on filedocumented in this encounter Care Teams Barrel Repairer Relationship Specialty Start Date End Date Chase Umana MD [address] [place] [address] [place] [phone] PCP - General 09/18/14 07/15/22 documented as of this encounter
--- OUTSIDE RECORDS SUMMARY | 2024-09-07 10:14 | XMS_ITS | Encounter Summary ---
Author Organization [facility] Address [address] [place] [address] Care Team Providers Care Grease Man Name Role Phone Chase Umana MD Primary Care Provider [phone] Encounter Details Date Type Department Care Team (Late st Contact Info) Description 03/14/2015 Results Only [facility] [phone], ERGONOMIC SPECIALIST [address] [place] [address] Social History Tobacco Use Types Packs/Day Years [...] Diagnosis Comments PAP TEST- RESULT ONLY Routine 03/14/2015 0:00 EDT documented in this encounter Results * PAP TEST- RESULT ONLY (03/14/2015 0:00 EDT) Pathology Report: CYTOPATHOLOGY REPORT Reports generated via electronic interface contain original data; however they are lacking the format of the original report. Caution should be taken when reading/interpreti ng unformatted reports. Name: ? WILLIAMS RODRIGUEZ ? Accession #: ? [id number] : ? 1985 (Age: 29) ??F ?Collect Date: ? 03/14/2015 Location: ? [facility] ? Receive Date: ? 03/15/2015 Provider: ?[address] ERGONOMIC SPECIALIST Copy to: ? Specimen/Source: ?Pap Test, Cervix/Endocervix, ThinPrep Imaging System with manual evaluation Last Menstrual Period: ? 02/22/15 ? SPECIMEN ADEQUACY ? Satisfactory for Evaluation - transformation zone component present GENERAL CATEGORIZATION ? Negative for Intraepithelial Lesion or Malignancy ? Document reviewed and electronically signed by: ? Vee Mendoza, CT(ASCP)(IAC) ? Report Date: ??03/19/2015 17:32 End of Report [facility] 03/14/2015 03/15/[address] ERGONOMIC SPECIALIST PATHOLOGY ORDERABLES Final Res ult [facility] [address] [place] [address] documented in this encounter Visit Diagnoses Not on filedocumented in this encounter Care Teams Grease Man Relationship Specialty Start Date End Date Chase Umana MD [address] [facility] [place] [phone] PCP - General 09/18/14 07/15/22 documented as of this encounter
--- OUTSIDE RECORDS SUMMARY | 2024-09-07 10:14 | XMS_ITS | Encounter Summary ---
Author Organization [facility] [place] [address] Care Team Providers Care Embossing Clerk Name Role Phone ChiquitaabnerSherry lerma APRN Primary Care Provider Reason for Referral * Consultation (Routine) - Closed Specialty Diagnoses / Procedures Referred By Contgarima t Referred To Contact Obstetrics and Gynecology Diagnoses , unspecified gestational age Multigravida of advanced maternal age, first trimester Previous section Uterine leiomyoma, unspecified location [facility] [address] [place] [address] [facility] Stage Set Up Worker [address] [place] [address] Referral ID Status Reason Start Date Expiration Date V isits Requested Visits Authorized [id number] Closed Consult, Test & Treat PCP Updated and/or Approved 08/13/2022 08/13/2023 6 6 Encounter Details Date Type Department Care Team (Late st Contact Info) Description 08/13/2022 Transcribe Orders eDH Incoming Referrals [phone] Sh[facility] Cook [facility] [address] [place], [place] [address] , unspecified gestational age; Multigravida of advanced maternal age, first trimester; Previous section; Uterine leiomyoma, unspecified location Social History Tobacco Use Types Packs/Day Years Used Date Smoking Tobacco: Never Assessed Sex and Gender Information Value Date Recorded Sex Assigned at Not on file Gender Identity Not on file Sexual Orientation Not on file documented as of this encounter Plan of Treatment Scheduled Referrals Name Type Priority Associated Diagnoses Orde r Schedule Referral to Maternal Medicine Outpatient Referral Routine , unspecified gestational age Multigravida of advanced maternal age, first trimester Previous section Uterine leiomyoma, unspecified location Ordered: 08/13/2022 documented as of this encounter Visit Diagnoses Diagnosis , unspecified gestational age Multigravida of advanced maternal age, first trimester Previous section Other postprocedural status Uterine leiomyoma, unspecified location documented in this encounter Care Teams Embossing Clerk Relationship Specialty Start Date End Date Sherry Victoria, EVENT ATTENDANT [address] [place] [address] PCP - General Family Medicine 08/13/22 08/24/24 documented as of this encounter
--- OUTSIDE RECORDS SUMMARY | 2024-09-07 10:14 | XMS_ITS | Encounter Summary ---
Author Organization [facility] Address [address] [place] [address] Care Team Providers Care Pusher Operator Name Role Phone Unavailable Primary Care Provider Unavailabl e Encounter Details Date Type Department Care Team (Late st Contact Info) Description 11/25/2011 Results Only [facility] Laboratory Services - [facility] [address] [place], [place] [id number] Doyle aLne NP [address] [place] [address] Social History Tobacco Use Types [...] Diagnosis Comments PAP TEST- RESULT ONLY Routine 11/25/2011 0:00 EDT documented in this encounter Results * PAP TEST- RESULT ONLY (11/25/2011 0:00 EDT) Pathology Report: CYTOPATHOLOGY REPORT Reports generated via electronic interface contain original data; however they are lacking the format of the original report. Caution should be taken when reading/interpreti ng unformatted reports. Name: ? WILLIAMS RODRIGUEZ ? Accession #: ? [id number] : ? 1985 (Age: 26) ??F ?Collect Date: ? 11/25/2011 Location: ? [facility] ? Receive Date: ? 11/27/2011 Provider: ?[address] LAB TESTER Copy to: ? Specimen/Source: ?Pap Test, Cervix/Endocervix, ThinPrep Imaging System with manual evaluation Last Menstrual Period: ? Previous Gynecologic Pathology: ? ASC-US: + last pap > 1 yr ago ? SPECIMEN ADEQUACY ? Satisfactory for Evaluation - transformation zone component present GENERAL CATEGORIZATION ? Negative for Intraepithelial Lesion or Malignancy INTERPRETATION ? Reactive cellular changes associated with inflammation present (includes repair). ? Document reviewed and electronically signed by: ? [facility] ? Report Date: ??12/07/2011 12:01 End of Report [facility] 11/25/2011 11/27/[address] LAB TESTER PATHOLOGY ORDERABLES Final Res ult [facility] [address] [place] [address] documented in this encounter Visit Diagnoses Not on filedocumented in this encounter
--- OUTSIDE RECORDS SUMMARY | 2024-09-07 10:14 | XMS_ITS | Encounter Summary ---
Author Organization [facility] Address [address] [place] [address] Care Team Providers Care Toolroom Clerk Name Role Phone Sherry Victoria NP Primary Care Provider [phone] Encounter Details Date Type Department Care Team (Late st Contact Info) Description 08/13/2022 Lab Requisition [facility] Pathology & Laboratory Medicine - [facility] [address] [place], [place] [address] Outr Resulting Lab, Provider Social History Tobacco [...] Procedure Name Priority Date/Time Associated Diagnosis Comments HIV 1/2 ANTIGEN AND ANTIBODY, 4TH GENERATION Routine 08/12/2022 15:50 EST documented in this encounter Results * HIV 1/2 ANTIGEN AND ANTIBODY, 4TH GENERATION (08/12/2022 15:50 EST) HIV 1 and 2 Antibody/p24 Antigen, 4th Generation Negative Negative 08/14/2022 9:34 EST [facility] Comment:If acute HIV-1 infec tion is suspected in a high risk patient, submit plasma specimen for HIV-1 RNA quantitation test. Blood VENOUS BLOOD / Unknown 08/12/2022 15:50 EST 08/13/2022 17:24 EST Narrative [facility] - 08/14/2022 9:34 EST Fourth Generation assay performed on the Siem[employer] XPT. us Provider Outr Resulting Lab IMMUNOLOGY AND SEROL OGY ORDERABLES Final Result [facility] [address] [place] [address] documented in this encounter Visit Diagnoses Not on filedocumented in this encounter Care Teams Toolroom Clerk Relationship Specialty Start Date End Date Sherry Victoria NP [address] [place] [address] PCP - General 07/16/22 documented as of this encounter
--- OUTSIDE RECORDS SUMMARY | 2024-09-07 10:14 | XMS_ITS | Encounter Summary ---
Author Organization [facility] Address [address] [place] [address] Care Team Providers Care Electrical Plumbing Supervisor Name Role Phone Chase Umana MD Primary Care Provider [phone] Sherry Victoria NP Primary Care Provider [phone] Encounter Details Date Type Department Care Team (Late st Contact Info) Description 02/02/2020 Lab Requisition [facility] Pathology & Laboratory Medicine - [facility] [address] [place] [address] Outr Resulting Lab, Provider Social History Tobacco [...] Procedure Name Priority Date/Time Associated Diagnosis Comments ZZCOVID-19 TEST [facility] PCR Today 02/01/2020 15:15 EDT COVID-19 TESTING Routine 02/01/2020 15:1 5 EDT documented in this encounter Results * COVID-19 TEST [facility] PCR (02/01/2020 15:15 EDT) Swab ENTIRE NASOPHARYNX / Unknown 02/01/2020 15:15 EDT 02/02/2020 21:10 EDT us Provider Outr Resulting Lab MICROBIOLOGY - GENER AL ORDERABLES Final Result [facility] [address] [place] [address] * COVID-19 TESTING (02/01/2020 15:15 EDT) COVID-19 rt-PCR Result Negative Negative 02/03/2020 18:39 EDT [facility] Comment: This test has not been FDA cleared or approved. This test has been authorized by FDA under an EUA for use by authorized laboratories. This test has been authorized only for detection of nucleic acid from 2019-nCoV, not for any other viruses or pathogens. This test is only authorized for the duration of the declaration that circumstances exist justifying the authorization of emergency use of in vitro diagnostic tests for detection and/or diagnosis of 2019-nCoV under section 564(b)(1) of Act, 21 U.S.C ?? 360bbb-3(b) (1), unless the authorization is terminated or revoked sooner. Negative results do not preclude 2019-nCoV infection and should not be used as the sole basis for treatment or other patient management decisions. Negative results must be combined with clinical observations, patient history, and epidemiological information. Performed on the [employer] sentronicsher Fusion instrument Performing Lab [place] [facility] Lab 02/03/2020 18:39 EDT [facility] Swab 02/01/2020 15:1 5 EDT 02/02/2020 21:10 EDT us Provider Outr Resulting Lab MICROBIOLOGY - GENER AL ORDERABLES Final Result Performing Organization Address [facility] Co de Phone Number [facility] [address] [place] [address] documented in this encounter Visit Diagnoses Not on filedocumented in this encounter Care Teams Electrical Plumbing Supervisor Relationship Specialty Start Date End Date Chase Umana MD [address] [place] [address] [place] [id number] PCP - General 09/18/14 07/15/22 Sherry Victoria NP [facility] [place] [address] PCP - General 07/16/22 documented as of this encounter
[2024-09-07 15:15] LABS: HCT 41.2 % (36.0-46.0); HGB 13.6 g/dL (11.2-15.7); MCH 29.8 pg (27.0-33.0); MCV 90 fL (80-95); MPV 8.9 fL (8.0-11.0); Platelet Count 268 10^3/uL (130-400); RBC 4.57 10^6/uL (3.93-5.22); RDW 12.7 % (11.7-14.6); RDW-SD 42.5 fL; WBC 5.71 10^3/uL (4.4-10.8)
[2024-09-07 15:42] LABS: ALT 28 U/L (14-59); AST 19 U/L (15-37); Alkaline Phosphatase 86 U/L (46-116); Anion Gap 10.5 mmol/L (3-11); BUN 11 mg/dL (7-18); Bilirubin, Total 0.61 mg/dL (0.2-1.0); CO2 25.5 mmol/L (21.0-32.0); CREATININE 0.9 mg/dL (0.55-1.02); Calcium 8.9 mg/dL (8.5-10.1); Chloride 106 mmol/L (98-107); Estimated GFR 84.44 (mL/min/1.73m2); Glucose 83 mg/dL (74-106); Potassium 3.6 mmol/L (3.5-5.1); Sodium 142 mmol/L (136-145); TSH (W/Ref FT4) 1.89 uIU/mL (0.36-3.74); Total Protein 7.4 g/dL (6.4-8.2)
== END 2024-09-07 10:12 | disposition home or self-care (01) ==
LOC: NCHCN 10:11
PROVIDERS: PCP Nurse Practitioner Family; Visit Provider Nurse Practitioner Family
DX: F41.9 Anxiety disorder, unspecified (principal)
CPT/HCPCS: 80053; 85027; 84443

== ENCOUNTER 2025-02-24 22:14 | Emergency (ER) | payer BC, SELFPAY ==
--- NOTE | 2025-02-24 22:15 | RT.EKG_ITS ---
APPROVED REPORT Exam: Resting ECG Reason for Exam: tachycardia Patient Location: E HR:117 bpm ECG Measurements Heart Rate 117 AXIS MD 141 P 60 QRSd 81 QRS 35 QT 348 T 18 QTc 486 Conclusion Sinus tachycardia...rate> [address] segment or T wave abnormalities to suggest occlusive [place]
[2025-02-24 22:19] VITALS: BP 198/133; PULSE 150; RESP 22; TEMP 36.8; O2SAT 100
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
[2025-02-25 01:35] VITALS: BP 184/119; PULSE 104; RESP 20; O2SAT 100
--- NOTE | 2025-02-25 01:45 | RT.EKG_ITS ---
APPROVED REPORT Exam: Resting ECG Reason for Exam: tachycardia Patient Location: E HR:98 bpm ECG Measurements Heart Rate 98 AXIS DE 155 P 56 QRSd 83 QRS 29 QT 414 T 45 QTc 529 Conclusion Sinus rhythm...normal P axis, V-rate 60- 99 Prolonged QT interval...QTc >510mS no ST segment or T wave abnormalities to suggest occlusive [place]
[2025-02-25 03:12] LABS: Glucose Negative (Negative)
[2025-02-25 03:15] LABS: Abs Immature Grans 0.03 10^3/uL (0.0-0.06); HCT 41.2 % (36.0-46.0); HGB 13.8 g/dL (11.2-15.7); Immature Grans % 0.3 %; MCH 30.3 pg (27.0-33.0); MCHC 33.5 % (32.0-36.0); MCV 90 fL (80-95); MPV 8.6 fL (8.0-11.0); Platelet Count 263 10^3/uL (130-400); RBC 4.56 10^6/uL (3.93-5.22); RDW 13.0 % (11.7-14.6); RDW-SD 43.4 fL; WBC 9.89 10^3/uL (4.4-10.8)
[2025-02-25 03:25] LABS: ALT 24 U/L (14-59); AST 16 U/L (15-37); Albumin 4.0 g/dL (3.4-5.0); Alkaline Phosphatase 108 U/L (46-116); Anion Gap 8.8 mmol/L (3-11); BUN 14 mg/dL (7-18); Bilirubin, Total 0.3 mg/dL (0.2-1.0); CO2 28.2 mmol/L (21.0-32.0); Calcium 8.7 mg/dL (8.5-10.1); Chloride 103 mmol/L (98-107); Estimated GFR 84.44 (mL/min/1.73m2); Glucose 103 mg/dL (74-106); Magnesium 2.1 mg/dL (1.8-2.4); Potassium 3.4 mmol/L (3.5-5.1); Sodium 140 mmol/L (136-145); Total Protein 7.6 g/dL (6.4-8.2)
[2025-02-25] MEDS: Potassium Chloride Liquid 20 MEQ PKT 40 MEQ PO (03:42)
[2025-02-25 03:48] LABS: TSH (W/Ref FT4) 1.91 uIU/mL (0.36-3.74)
[2025-02-25 06:25] VITALS: BP 188/98; PULSE 99; RESP 20; O2SAT 100
== END 2025-02-25 06:25 | disposition home or self-care (01) ==
LOC: ER 02-25 07:11
PROVIDERS: Emergency Provider Student in an Organized Health Care Education/Training Program; PCP Nurse Practitioner Family
DX: F41.0 Panic disorder [episodic paroxysmal anxiety] (principal); R00.0 Tachycardia, unspecified; Z63.0 Problems in relationship with spouse or partner; Z87.891 Personal history of nicotine dependence
CPT/HCPCS: 80053; 93005; 99284; 81003; 83735; 84443; 85025; 93010